=== PATIENT | female | born 1995 | race American Indian/Alaskan Native ===

== ENCOUNTER → 2018-03-08 12:41 | Outpatient (CLI) | payer MEDICAID, SELFPAY ==
--- NOTE | 2018-03-08 | DI.US.S_ITS ---
PROCEDURE: US OB <= 14 WEEKS FETUS INDICATIONS: initial sizing and dating OUTSIDE/PRIOR DATING DATA: First dating scan (date and location): 03/08/18. Estimated date of delivery (AROLDO) from first dating scan: 11/03/18. TECHNIQUE: Real-time scanning was performed of the fetus and maternal pelvic organs, with image documentation. Endovaginal scanning was also performed to better visualize the fetus and maternal ovaries. COMPARISON: None. FINDINGS: Embryo: [place]-rump length measures 2 mm corresponding to 5 weeks 5 days. AROLDO is 11/03/18. There is a complex region noted adjacent to the sac within the lower uterine segment which may be related to implantation bleed. Measurement variability in dating: +/- 4 weeks by LMP, +/- 7 days by mean sac diameter (use before 6 weeks gestation if crown-rump length not able to be measured), +/- 5 days by crown-rump length (up to 8 weeks 6 days gestation), +/- 7 days by crown-rump length (up to 13 weeks 6 days gestation). Maternal organs: Ovaries within normal limits with a right corpus luteal cyst measuring roughly 29 mm. Limited images through the kidneys demonstrate no hydronephrosis. IMPRESSION: 5 week 5 day mclean IUP. Dictated by: Jose DEUTSCH Interpreted: King Rahman MD on 03/08/2018 at 13:59 Approved by: Kevin Lopez M.D. on 03/11/2018 at 10:15
== END ==
PROVIDERS: Visit Provider Family Medicine
DX: Z34.91 Encounter for supervision of normal pregnancy, unspecified, first trimester (principal); Z3A.01 Less than 8 weeks gestation of pregnancy
CPT/HCPCS: 76801; 76830

== ENCOUNTER 2018-04-01 01:38 | Emergency (ER) | payer MEDICAID, SELFPAY ==
[2018-04-01 01:52] VITALS: BP 127/72; PULSE 76; RESP 16; TEMP 37.1; O2SAT 98; BMI 26.6
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
[2018-04-01] MEDS: ACETAMINOPHEN 325 MG TABLET 975 MG PO (02:07)
[2018-04-01 03:49] LABS: Appearance Urine UA CLEAR; Bilirubin Urine UA NEGATIVE (NEGATIVE); Color Urine UA YELLOW; Glucose Urine UA NEGATIVE (Normal); Ketones Urine UA TRACE (NEGATIVE); Leukocyte Esterase Urine UA 1+ (NEGATIVE); Nitrite Urine UA Negative (Negative); Occult Blood Urine UA NEGATIVE (Negative); Protein Urine UA NEGATIVE (Negative); RBC Urine None Seen (0-5/HPF); Urobilinogen Urine UA 0.2 E.U./dL (0.2)
[2018-04-01 04:01] LABS: Squamous Epithelial Cell Urine 1-5 /HPF; WBC Urine 1-5/HPF (0-5/HPF)
[2018-04-01 04:02] LABS: Bacteria Urine Few (2-10); Culture Indicated Urine Specimen Cultured
[2018-04-01 04:14] VITALS: BP 116/58; PULSE 67; RESP 18; O2SAT 99
== END 2018-04-01 04:28 | disposition home or self-care (01) ==
PROVIDERS: Emergency Provider Emergency Medicine
DX: O23.41 Unspecified infection of urinary tract in pregnancy, first trimester (principal); Y04.8XXA Assault by other bodily force, initial encounter; Z3A.09 9 weeks gestation of pregnancy
CPT/HCPCS: 76801; 76817; 81001; 81003; 87086; 99282; 99284

== ENCOUNTER → 2018-04-02 13:55 | Outpatient (CLI) | payer MEDICAID, SELFPAY ==
[2018-04-02 15:10] LABS: Add Manual Diff / Slide Review NO; Basophils Percent Auto 1.1 % (0-2); Eosinophils Percent Auto 5.1 % (2-4); Hematocrit 43.2 % (36-46); Hemoglobin 14.8 g/dL (12.0-16.0); Lymphocytes Percent Auto 20.8 % (25-40); Mean Corpuscular HGB Conc 34.3 % (30-36); Mean Corpuscular Hemoglobin 29.7 PG (26-34); Mean Corpuscular Volume 86.6 fL (80-100); Monocytes Percent Auto 6.6 % (3-14); Neutrophils Absolute Auto 6000 /uL (3000-5900); Neutrophils Percent Auto 66.4 % (50-75); Platelet Count 336 X10^3/uL (150-400); Red Blood Cell Count 4.99 X10^6/uL (4.0-5.2); Red Cell Distribution Width 12.8 % (11.6-14.8)
[2018-04-02 15:23] LABS: Appearance Urine UA SL CLOUDY; Bilirubin Urine UA NEGATIVE (NEGATIVE); Color Urine UA YELLOW; Glucose Urine UA NEGATIVE (Normal); Ketones Urine UA NEGATIVE (NEGATIVE); Leukocyte Esterase Urine UA 1+ (NEGATIVE); Nitrite Urine UA Negative (Negative); Occult Blood Urine UA NEGATIVE (Negative); Protein Urine UA NEGATIVE (Negative); Urobilinogen Urine UA 0.2 E.U./dL (0.2)
[2018-04-02 15:55] LABS: RBC Urine None Seen (0-5/HPF)
[2018-04-02 15:56] LABS: Amorphous Sediment Urine 1+; Renal Epithelial Cells Urine 1-5/HPF; Squamous Epithelial Cell Urine 10-30 /HPF; WBC Urine 5-10/HPF (0-5/HPF)
[2018-04-02 15:57] LABS: Bacteria Urine Few (2-10); Mucus Urine 1+ (Negative)
[2018-04-02 16:36] LABS: Hepatitis B Surface Antigen NEGATIVE s/c (NEGATIVE); Rubella Antibody IgG 4.5 IU/mL (>15)
[2018-04-02 16:58] LABS: HIV 1 and 2 Antibody NEGATIVE (NEGATIVE); Hep C Virus Ab w/Reflex Quant NEGATIVE s/c (NEGATIVE)
[2018-04-04 14:19] LABS: HSV 2 IGG AB < 0.90 index (< 0.90)
[2018-04-04 14:49] LABS: Varicella IgG Antibody < 135.00 Index (< 135.00)
[2018-04-08 14:16] LABS: Rapid Plasma Reagin NON-REACTIVE
== END ==
PROVIDERS: Visit Provider Specialist
DX: Z34.90 Encounter for supervision of normal pregnancy, unspecified, unspecified trimester (principal)
CPT/HCPCS: 36415; 80055; 81003; 81015; 86695; 86696; 86703; 86787; 86803; 86850; 86900; 86901; 87086

== ENCOUNTER → 2018-06-06 15:05 | Outpatient (CLI) | payer MEDICAID, SELFPAY ==
[2018-06-12 21:54] LABS: AFP, Serum 36.3 ng/mL; Calc Gestational Age 18.6; Cigarette Smoker NO; Donated Egg NOT GIVEN; Donor Egg Age NOT GIVEN; Estriol, Free 1.39 ng/mL; Inhibin A, Dimeric 114 pg/mL; Maternal Ethnicity NOT GIVEN; Maternal Weight 176 lbs; Number of Fetuses NOT GIVEN; Previous Pregnancy Down Syndro NOT GIVEN; hCG, MoM 0.84; hCG, Serum 17.2 IU/mL
== END ==
PROVIDERS: Visit Provider Specialist
DX: Z34.82 Encounter for supervision of other normal pregnancy, second trimester (principal)
CPT/HCPCS: 36415; 82105; 82677; 84702; 86336

== ENCOUNTER → 2018-07-12 11:06 | Outpatient (CLI) | payer MEDICAID, SELFPAY ==
--- NOTE | 2018-07-12 11:07 | DI.US.S_ITS ---
PROCEDURE: US OB >= 14 WEEKS FETUS INDICATIONS: 20 WEEK ANATOMY OUTSIDE/PRIOR DATING DATA: Last menstrual period (LMP): unknown LMP-based estimated date of delivery (AROLDO): unknown First dating scan (date and location): 03/08/18 Estimated date of delivery (AROLDO) from first dating scan: 11/03/18 . TECHNIQUE: Real-time scanning was performed of the fetus, with image documentation and biometric measurements. COMPARISON: [facility], OB >= 14 WEEKS FETUS, 04/11/2018, 8:23. formerly [facility], OB <= 14 WEEKS FETUS, 04/01/2018, 2:31. formerly [facility], OB <= 14 WEEKS FETUS, 03/08/2018, 13:20. [facility], OB >= 14 WEEKS FETUS, 06/06/2018, 14:49. FINDINGS: General: A single living intrauterine gestation is present. Presentation: Vertex Placenta: Placental position is posterior, without previa. Lower placental edge 2 cm or less from internal cervical os qualifies as low lying placenta. Amniotic fluid index: 24.2 cm, normal range is 5-24 cm. heart rate: 149 beats per minute. Maternal cervical canal: 3.2 cm long. Normal lower limit is 2.5 cm. Report any funneling of internal cervical os: % of canal length, shape (U or V), width or any U-shaped funneling. biometrics: Biparietal diameter: 6.0 cm 24 weeks 4 days Head circumference: 22.3 cm 24 weeks 2 days Abdominal circumference: 20.4 cm 25 weeks 0 days Femur length: 4.4 cm 24 weeks 2 days Estimated gestational age from initial scan: 23 weeks 5 days Composite gestational age from present scan: 24 weeks 4 days Estimated weight and percentile: 718g 83rd percentile Measurement variability for biometric dating: +/- 7 days from 14 weeks to 15 weeks 6 days gestation, +/- 10 days from 16 weeks to 21 weeks 6 days gestation, +/- 2 weeks from 22 weeks to 27 weeks 6 days gestation, +/- 3 weeks for 28 weeks gestation or later. weight reference: 4500 g or EFW >90/95% is considered macrosomia or large for gestational age. EFW <10% is small for gestational age. EFW 5% or less is considered intra-uterine growth restriction. Anatomic survey: Neuro: Ventricles are non-dilated at less than 10 mm. Cisterna magna is normal at 3-11 mm. Cerebellum is normal in size and morphology. Nuchal skin fold: Normal at less than 6 mm between 14-21 weeks gestational age. Face: Nose and lips, facial profile are normal. Spine: Not visualized. Heart: 4-chambered heart is present, with normal ventricular outflow tracts. Echogenic focus is noted in the left ventricle. Diaphragm: Diaphragm is intact. Stomach: Left-sided stomach is present. Kidneys: No hydronephrosis. Normal is less than 5 mm in 2nd trimester, less than 7 mm in 3rd trimester. Cord: 3-vessel cord has orthotopic insertion. Bladder: Normal in size. Extremities: All 4 extremities identified. IMPRESSION: 1. Single, live intrauterine is present with ultrasound gestational age of 24 weeks 4 days, compared to 23 weeks 5 days from initial ultrasound. 2. Spine is not well seen. Followup ultrasound is recommended for further evaluation. 3. Left ventricular echogenic focus is present. Finding is nonspecific. Recommend clinical correlation and followup imaging as indicated. Dictated by: Marylou Conklin M.D. on 07/12/2018 at 16:43 Approved by: Marylou Conklin M.D. on 07/12/2018 at 16:54
== END ==
PROVIDERS: PCP Specialist; Visit Provider Specialist
DX: Z34.92 Encounter for supervision of normal pregnancy, unspecified, second trimester (principal); Z36.89 Encounter for other specified antenatal screening; Z3A.24 24 weeks gestation of pregnancy
CPT/HCPCS: 76811

== ENCOUNTER → 2018-07-22 13:55 | Outpatient (CLI) | payer MEDICAID, SELFPAY ==
--- NOTE | 2018-07-22 13:56 | DI.US.S_ITS ---
PROCEDURE: US OB FOLLOW UP INDICATIONS: FOLLOW UP OF SPINE OUTSIDE/PRIOR DATING DATA: Last menstrual period (LMP): Not available. LMP-based estimated date of delivery (AROLDO): Not available. First dating scan (date and location): 03/08/18. Estimated date of delivery (AROLDO) from first dating scan: 11/03/18. TECHNIQUE: Real-time scanning was performed of the fetus, with image documentation. Endovaginal scanning: Not needed for this study. COMPARISON: All prior OB ultrasound studies for this .. FINDINGS: A single living intrauterine gestation is present. Presentation: Vertex. Placenta: Placental position is posterior, without previa. Amniotic fluid index: 12.9 cm, normal range is 5-24 cm. heart rate: 147 beats per minute. Estimated gestational age from initial scan: 25 weeks 1 day. Completion of anatomic survey is performed by visualization of normal spine in addition to the prior normal anatomy visualized previously. IMPRESSION: Completion of anatomic survey with normal spine visualized. Dictated by: Davion Otto M.D. on 07/22/2018 at 14:23 Approved by: Davion Otto M.D. on 07/22/2018 at 14:25
== END ==
PROVIDERS: PCP Specialist; Visit Provider Specialist
DX: Z36.89 Encounter for other specified antenatal screening (principal); Z3A.25 25 weeks gestation of pregnancy
CPT/HCPCS: 76816

== ENCOUNTER → 2018-08-02 16:34 | Outpatient (CLI) | payer MEDICAID, SELFPAY ==
[2018-08-02 18:13] LABS: Hematocrit 37.6 % (36-46); Hemoglobin 12.9 g/dL (12.0-16.0)
[2018-08-02 18:25] LABS: GTT (PREG) 1 Hour PP 50gm Dose 78 mg/dL (76-139)
== END ==
PROVIDERS: PCP Specialist; Visit Provider Specialist
DX: Z34.82 Encounter for supervision of other normal pregnancy, second trimester (principal)
CPT/HCPCS: 36415; 82950; 85014; 85018

== ENCOUNTER 2018-08-21 11:40 | Outpatient (CLI) | payer MEDICAID, SELFPAY ==
--- NOTE | 2018-08-21 12:12 | PM.OBTRLD ---
Visit Information Visit Information Date of evaluation: 08/21/18 Primary OB Provider: Alicia Calderon On-call OB Provider: Areli Hernandez Reason for Evaluation: Yes other Comments/Additional reasons for admission: Intermittent abdominal pain, primarily LUQ. Not severe. Her work requested that she come in for evaluation. [facility] Medical History Asthma (Acute) Social History Smoking Status: Never smoker Evaluation Evaluation Baseline heart rate: 140 Variability: Moderate (11-25) monitor accelerations: Present monitor decelerations: Absent Category of Tracing: I Comments: No contractions seen on monitoring Diagnosis, Plan/Disposition Final Diagnosis (1) Abdominal pain: Current Visit: No Status: Acute Plan/Disposition Plan: Most likely muscular. No contractions on monitoring. U/A normal. Pt stable for d/c home. Discussed heating pad, Tylenol if needed. OB Disposition: home
--- NOTE | 2018-08-21 12:15 | P.TNLD_ITS ---
Visit Information Visit Information Date of evaluation: 08/21/18 Primary OB Provider: Alicia Calderon On-call OB Provider: Areli Hernandez Reason for Evaluation: Yes other Comments/Additional reasons for admission: Intermittent abdominal pain, primarily LUQ. Not severe. Her work requested that she come in for evaluation. [facility] Medical History Asthma (Acute) Social History Smoking Status: Never smoker Evaluation Evaluation Baseline heart rate: 140 Variability: Moderate (11-25) monitor accelerations: Present monitor decelerations: Absent Category of Tracing: I Comments: No contractions seen on monitoring Diagnosis, Plan/Disposition Final Diagnosis (1) Abdominal pain: Current Visit: No Status: Acute Plan/Disposition Plan: Most likely muscular. No contractions on monitoring. U/A normal. Pt stable for d/c home. Discussed heating pad, Tylenol if needed. OB Disposition: home
[2018-08-21 12:19] LABS: RBC Urine None Seen (0-5/HPF)
[2018-08-21 12:21] LABS: Appearance Urine UA CLEAR; Bilirubin Urine UA NEGATIVE (NEGATIVE); Color Urine UA YELLOW; Glucose Urine UA NEGATIVE (Normal); Ketones Urine UA NEGATIVE (NEGATIVE); Leukocyte Esterase Urine UA NEGATIVE (NEGATIVE); Nitrite Urine UA NEGATIVE (Negative); Occult Blood Urine UA NEGATIVE (Negative); Protein Urine UA NEGATIVE (Negative); Urobilinogen Urine UA 0.2 E.U./dL (0.2)
[2018-08-21 12:37] LABS: Bacteria Urine Few (2-10); Culture Indicated Urine Cult Not Indicated; Squamous Epithelial Cell Urine 10-30 /HPF; WBC Urine 1-5/HPF (0-5/HPF)
== END 2018-08-21 12:45 | disposition home or self-care (01) ==
LOC: LABOR 12:27 → OB 08-22 11:02
PROVIDERS: Family Medicine; PCP Specialist; Visit Provider Specialist
DX: Z34.83 Encounter for supervision of other normal pregnancy, third trimester (principal); Z3A.29 29 weeks gestation of pregnancy; R10.12 Left upper quadrant pain
CPT/HCPCS: 59025; 81001; G0378; G0379

== ENCOUNTER 2018-09-17 14:14 | Outpatient (CLI) | payer MEDICAID, SELFPAY ==
[2018-09-17 14:45] LABS: RBC Urine None Seen (0-5/HPF)
[2018-09-17 14:47] LABS: Appearance Urine UA CLOUDY; Bilirubin Urine UA NEGATIVE (NEGATIVE); Color Urine UA YELLOW; Glucose Urine UA NEGATIVE (Normal); Ketones Urine UA NEGATIVE (NEGATIVE); Leukocyte Esterase Urine UA 2+ (NEGATIVE); Nitrite Urine UA NEGATIVE (Negative); Occult Blood Urine UA NEGATIVE (Negative); Protein Urine UA NEGATIVE (Negative); Specific Gravity Urine UA 1.015 (1.000-1.035); Urobilinogen Urine UA 0.2 E.U./dL (0.2)
[2018-09-17 14:57] LABS: WBC Urine 5-10/HPF (0-5/HPF)
[2018-09-17 14:58] LABS: Amorphous Sediment Urine 2+; Bacteria Urine Moderate (10-30); Culture Indicated Urine Specimen Cultured; Mucus Urine 2+ (Negative); Squamous Epithelial Cell Urine 10-30 /HPF
== END 2018-09-17 15:35 | disposition home or self-care (01) ==
LOC: LABOR 14:36 → OB 09-19 08:23
PROVIDERS: PCP Specialist; Visit Provider Specialist
DX: Z34.83 Encounter for supervision of other normal pregnancy, third trimester (principal); Z3A.33 33 weeks gestation of pregnancy
CPT/HCPCS: 59025; 81001; 87086; G0378; G0379

== ENCOUNTER → 2018-10-10 12:35 | Outpatient (CLI) | payer MEDICAID, SELFPAY ==
[2018-10-11 13:33] LABS: Strep Grp B PCR NEG for Grp B Strep
== END ==
PROVIDERS: PCP Specialist; Visit Provider Specialist
DX: Z34.93 Encounter for supervision of normal pregnancy, unspecified, third trimester (principal); Z3A.36 36 weeks gestation of pregnancy
CPT/HCPCS: 87653

== ENCOUNTER 2018-10-19 09:46 | Outpatient (CLI) | payer MEDICAID, SELFPAY | END 2018-10-19 11:49 | disposition home or self-care (01) | LOC: OB 09:49 → LABOR 09:51 | PROVIDERS: PCP Specialist; Visit Provider Family Medicine | DX: Z34.83 Encounter for supervision of other normal pregnancy, third trimester (principal); Z3A.37 37 weeks gestation of pregnancy | CPT/HCPCS: 59025; G0378 ==

== ENCOUNTER 2018-10-20 07:33 | Inpatient (IN) | payer MEDICAID, SELFPAY ==
[2018-10-20] MEDS: LACTATED RINGERS 1,000 ML 100 ML IV (08:30)
[2018-10-20 09:06] LABS: Add Manual Diff / Slide Review NO; Basophils Absolute Auto 100 /uL (0-100); Basophils Percent Auto 0.6 % (0-2); Eosinophils Absolute Auto 200 /uL (0-450); Eosinophils Percent Auto 1.8 % (2-4); Hematocrit 35.8 % (36-46); Hemoglobin 12.1 g/dL (12.0-16.0); Lymphocytes Absolute Auto 2100 /uL (1100-4500); Lymphocytes Percent Auto 19.6 % (25-40); Mean Corpuscular HGB Conc 33.8 % (30-36); Mean Corpuscular Hemoglobin 27.5 PG (26-34); Mean Corpuscular Volume 81.2 fL (80-100); Monocytes Absolute Auto 800 /uL (0-900); Monocytes Percent Auto 7.2 % (3-14); Neutrophils Absolute Auto 7600 /uL (1500-7000); Neutrophils Percent Auto 70.8 % (50-75); Platelet Count 244 X10^3/uL (150-400); Red Cell Distribution Width 12.6 % (11.6-14.8); White Blood Cell Count 10.7 X10^3/uL (4.5-11.0)
--- NOTE | 2018-10-20 10:10 | PM.OBHP.1 ---
OB HPI Date/Time Date of admission: 10/20/18 Date Patient Seen: 10/20/18 Time Patient Seen: 09:45 History of Present Condition Chief complaint: OBSERVATION : 2 Para: 1 Estimated Date of Delivery: 11/03/18 Estimated Gestational Age (weeks): 38w0d Narrative: Medina Byrd is a 23 year old at 38w0d who presented with regular painful contractions. The pt reports having contractions starting last night, that then waned. When she woke this morning, they were significantly more painful again, and increasing in strength. Prior to presentation, they were approximately every 6 minutes. The pt had some light spotting this morning, and did lose her mucus plug. She denies any LOF. She has been feeling her baby move regularly. Indications Other reason(s) for admission: active labor History of Present care: good care and initiated at week # (10) Dating criteria: LMP confirmed by 1st trimester US Ultrasounds: normal 1st trimester US and abnormal US findings Abnormal ultrasound findings: EIF seen on second trimester ultrasound Obstetrical complications: none Medical complications: respiratory (hx of asthma) Preadmission Labs Blood type: O (+) positive -: Antibody screen: negative, GBS status: negative, HBsAG: negative, HIV: negative, HSV 1: positive, HSV 2: negative and RPR/VDLR: negative -: Chlamydia screen: not detected and Gonorrhea screen: not detected -: Rubella: not immune and Varicella: immune HCT: 37.6 HCAB: negative PAP: Normal Quad screen: Normal Urine: Negative 1 hr GTT: 78 Prior (ies) History: 06/2011 - at 38wks, 7lb2oz female Evaluation Evaluation Baseline heart rate: 130 Variability: Moderate (11-25) monitor accelerations: Present monitor decelerations: Absent Contraction Frequency (minutes): 6 Uterine Contraction Intensity: Strong/Firm Category of Tracing: I Cervical dilation (cm): 7 Cervical effacement (%): 100 station: 0 Laboratory results: Laboratory Tests 10/20/18 10/20/18 08:55 08:55 WBC 10.7 RBC 4.40 Hgb 12.1 Hct 35.8 L MCV 81.2 MCH 27.5 MCHC 33.8 RDW 12.6 Plt Count 244 Neut % (Auto) 70.8 Lymph % (Auto) 19.6 L [place] % (Auto) 7.2 Eos % (Auto) 1.8 L Baso % (Auto) 0.6 Neut # (Auto) 7600 H Lymph # (Auto) 2100 [place] # (Auto) 800 Eos # (Auto) 200 Baso # (Auto) 100 Blood Type O Positive Antibody Screen Negative PFSH Medical History Asthma (Acute) Social History Smoking Status: Never smoker Meds Home Medications Medication Instructions Recorded Confirmed Type amoxicillin 500 mg PO TID #15 cap 04/01/18 04/02/18 Rx 1 tab PO DAILY 04/02/18 04/02/18 History vitamin,calcium,[id number] acid tablet Double Electric Breast Pump #1 ea 10/10/18 Rx Allergies Allergy/AdvReac Type Severity Reaction Status Date / Time No Known Drug Allergies Allergy Verified 04/01/18 01:57 Exam Narrative Exam Narrative: Gen: NAD, laying comfortably in bed, appears well CV: RRR, no murmurs Resp: clear to auscultation bilaterally Abd: soft, nondistended, gravid Ext: trace edema Objective Labs Result Diagrams: 10/20/18 08:55 Labs: Laboratory Results - last 24 hr 10/20/18 10/20/18 08:55 08:55 WBC 10.7 RBC 4.40 Hgb 12.1 Hct 35.8 L MCV 81.2 MCH 27.5 MCHC 33.8 RDW 12.6 Plt Count 244 Neut % (Auto) 70.8 Lymph % (Auto) 19.6 L [place] % (Auto) 7.2 Eos % (Auto) 1.8 L Baso % (Auto) 0.6 Neut # (Auto) 7600 H Lymph # (Auto) 2100 [place] # (Auto) 800 Eos # (Auto) 200 Baso # (Auto) 100 Blood Type O Positive Antibody Screen Negative Assessment and Plan (1) 38 weeks gestation of : Current visit: Yes Status: Acute (2) Active labor: Current visit: Yes Status: Acute Plan: Plan: 23yo at 38w0d who presented in active labor with significant cervical change despite relatively infrequent contractions. No significant complications with . GBS negative, Rh positive. - Expectant management, anticipate - Epidural for pain control now - GBS negative, no prophylaxis indicated - FHT reassuring
--- NOTE | 2018-10-20 11:41 | PM.OBPNLAB ---
Date/Time Date Patient Seen: 10/20/18 Time Patient Seen: 11:40 Pain Control Pain control: epidural Pelvic Exam Dilation (cm): 7 Effacement (%): 100 station: 0 Amniotic membrane status: Ruptured Contractions Contractions on admission: regular Monitor mode: External Contraction frequency (min): 8 Contraction duration (min): 1 Contraction pattern: Irregular Contraction intensity: Strong/Firm Status status: Category l Heart Rate Baseline: 145 Monitor Accelerations: Absent Monitor Decelerations: Absent Monitor Variability: Moderate Assessment and Plan Plan: begin patient augmentation Comments: 23yo at 38w0d here in active labor. After informed consent obtained, AROM performed with production of scant amount of clear fluid. Now with no significant cervical belt changer an hour after, and contractions spacing further apart. - Expectant management, anticipate - FHT reassuring - Start pitocin due to stalled labor, titrate as needed and tolerated - Epidural in place for pain control and working well - GBS negative, no prophylaxis indicated
--- NOTE | 2018-10-20 11:44 | P.PNOB_ITS ---
Date/Time Date Patient Seen: 10/20/18 Time Patient Seen: 11:40 Pain Control Pain control: epidural Pelvic Exam Dilation (cm): 7 Effacement (%): 100 station: 0 Amniotic membrane status: Ruptured Contractions Contractions on admission: regular Monitor mode: External Contraction frequency (min): 8 Contraction duration (min): 1 Contraction pattern: Irregular Contraction intensity: Strong/Firm Status status: Category l Heart Rate Baseline: 145 Monitor Accelerations: Absent Monitor Decelerations: Absent Monitor Variability: Moderate Assessment and Plan Plan: begin patient augmentation Comments: 23yo at 38w0d here in active labor. After informed consent obtained, AROM performed with production of scant amount of clear fluid. Now with no significant cervical exchange mechanic an hour after, and contractions spacing further apart. - Expectant management, anticipate - FHT reassuring - Start pitocin due to stalled labor, titrate as needed and tolerated - Epidural in place for pain control and working well - GBS negative, no prophylaxis indicated
[2018-10-20] MEDS: OXYTOCIN PREMIX 30 UNIT/500 ML PLAST..BAG IV (11:49)
[2018-10-20 12:01] VITALS: BP 138/80
--- NOTE | 2018-10-20 14:48 | P.PCNOB_ITS ---
Delivery date: 10/20/18 Intrapartal events: None Cervical ripening method: none Induction method: none Delivery augmentation: rupture of membranes and pitocin Delivery monitor: external FHT Route of delivery: Episiotomy description: None L&D Laceration Description: None Estimated blood loss (mL): 150 Anesthesia type: Epidural Complications: None Narrative: PROCEDURE: at 38w presented in active labor and was admitted to Labor and Delivery. The patient progressed through the 1st stage over 5 hours. Pain was controlled with an epidural. Her labor did not initially progress past 7cm. AROM was performed with production of clear fluid. There was still no cervical change, and pitocin was started. This had to be stopped due to a high risk delivery in the center requiring additional support. The pt then progressed on her own to having more regular contractions on her own. The patient progressed through the 2nd stage over 45 minutes and delivered a viable female with APGARs 8/9 at 14:30 via . The perineum and vagina were inspected with no lacerations. PREPROCEDURE DIAGNOSIS: Intrauterine at 38wks GBS negative RH positive POSTPROCEDURE DIAGNOSIS: Intrauterine at 38wks, delivered Same as preprocedure Spontaneous vaginal delivery ROM APPEARANCE: Clear BABY A DELIVERY TIME: 14:30 BABY A WEIGHT: [id number] BABY A NUCHAL CORD: No BABY A CORD GASES OBTAINED: No PLACENTA DELIVERY TIME: 14:34 PLACENTA APPEARANCE: Intact Terrell Baby 1: Infant gender: Female Presentation: vertex position: Right Occiput Anterior Placenta delivery description: Spontaneous cord vessel description: 3 Vessels score (1 min): 8 score (5 min): 9 Plan for aftercare: Normal care support
[2018-10-20] MEDS: IBUPROFEN 600 MG TABLET PO (23:23)
--- NOTE | 2018-10-21 09:07 | PM.OBDS.1 ---
Discharge Providers Date of admission: 10/20/18 07:33 Primary care physician: Alicia Calderon MD Consults: 10/20/18 15:10 Consult to Electrical Installer Routine Comment: Discharge provider: Areli Hernandez MD Discharge Date: 10/21/18 Summary Date Patient Seen: 10/21/18 Hospital Course: The patient presented to Labor and delivery in active labor. She received an epidural for pain control. AROM was performed with production of clear fluid. The patient's labor stalled at 7cm, and Pitocin was started for a brief period of time but then need to be stopped due to a other high-risk delivery occurring in the Center. The patient then progressed to complete without augmentation. She had a spontaneous vaginal delivery of a viable baby girl at 2:30 p.m. on 10/20/2018. There were no lacerations. The patient tolerated delivery well. , there were no complications. At the time of discharge he is voiding, passing flatus, ambulating without difficulty. Her lochia was decreasing appropriately. She is breast-feeding with good latch. She will be discharged home to follow up in [address] Calderon. She plans on Mirena IUD for control. Peripartum Data Infant Delivery Method: Natural Vaginal Laceration description: None Episiotomy description: None Procedures: Spontaneous vaginal delivery complications: none [place] 1: Gender: Female Disposition of : home Discharge Diagnosis (1) 38 weeks gestation of : Status: Acute (2) Active labor: Status: Acute (3) Spontaneous vaginal delivery: Status: Acute Status at Discharge Functional status at discharge: independent ambulation Overall status at discharge: patient is progressing back to baseline Time Spent with Patient Total time spent providing and/or coordinating discharge services: Greater than 30 minutes Specific discharge activities: No intercourse for 6 weeks Gradual return to normal activities Objective Labs Result Diagrams: 10/20/18 08:55 Labs: Laboratory Results - last 24 hr 10/20/18 08:55 Blood Type O Positive Antibody Screen Negative Discharge Plan Discharge Plan Patient Disposition: Home Discharge Med Rec/Prescriptions Prescriptions: New acetaminophen 325 mg Tablet 650 mg PO Q6HR PRN (Reason: Pain, Mild (1-3)) Qty: 30 RF: 0 benzocaine-menthol [Dermoplast (with menthol)] 20-0.5 % Aerosol 1 spray Topical Q1HR PRN (Reason: perineal pain) Qty: 15 RF: 0 ibuprofen 600 mg Tablet 600 mg PO Q6HR PRN (Reason: Pain, Mild (1-3)) Qty: 30 RF: 0 docusate sodium 250 mg Capsule 250 mg PO DAILY Qty: 30 RF: 0 lanolin [[id number]] Cream 1 applic Topical PRN PRN (Reason: Tenderness) Qty: 15 RF: 0 Continue Double Electric Breast Pump Qty: 1 RF: 0 prenat.vits,reyes,seb-ygfc-ppfxm [ Vitamin] tablet 1 tab PO DAILY RF: 0 Discontinued amoxicillin 500 mg capsule 500 mg PO TID Qty: 15 RF: 0 Follow up/Referrals: Alicia Calderon MD [Primary Care Provider] - 6 Weeks Provider Discharge Instructions Diet: Diet as Tolerated and Regular Activity: No intercourse for 6 weeks Gradual return to normal activity Skin/Wound/Dressing Care Report to your healthcare provider any signs of infection, such as:: chills, fever, increased pain and unusual drainage Visit Report/Discharge Packet Instructions: DI for Labor and Delivery, Vaginal Discharge Data Primary Care Provider: Alicia Calderon Attending Provider: Areli Hernandez Admit Date/Time: 10/20/18 07:33
[2018-10-21] MEDS: PRENATAL VIT,CALC/IRON/FOLIC 1 TABLET 1 TAB PO (09:11)
[2018-10-21] MEDS: DOCUSATE 250 MG CAPSULE PO (09:11)
[2018-10-21] MEDS: IBUPROFEN 600 MG TABLET PO (09:11)
[2018-10-21] MEDS: MEASLES,MUMPS,RUBELLA VACC/PF 0.5 ML VIAL SUBCUT (14:21)
== END 2018-10-21 14:50 | disposition home or self-care (01) | DRG 807 ==
PROVIDERS: Admitting Provider Family Medicine; PCP Specialist; Visit Provider Family Medicine
DX: O80 Encounter for full-term uncomplicated delivery (principal); Z37.0 Single live birth; Z3A.38 38 weeks gestation of pregnancy
CPT/HCPCS: 01967; 36415; 59025; 59050; 59409; 85025; 86850; 86900; 86901; G0379; J2590

== ENCOUNTER → 2022-03-01 13:04 | Outpatient (CLI) | payer MEDICAID, SELFPAY ==
[2022-03-01 14:17] LABS: Add Manual Diff / Slide Review NO; Basophils Absolute Auto 100 /uL (0-100); Basophils Percent Auto 0.8 % (0-2); Eosinophils Absolute Auto 300 /uL (0-450); Eosinophils Percent Auto 3.4 % (2-4); Hematocrit 39.5 % (36-46); Hemoglobin 13.7 g/dL (12.0-16.0); Lymphocytes Absolute Auto 2300 /uL (1100-4500); Lymphocytes Percent Auto 24.8 % (25-40); Mean Corpuscular HGB Conc 34.8 % (30-36); Mean Corpuscular Hemoglobin 30.5 PG (26-34); Mean Corpuscular Volume 87.7 fL (80-100); Monocytes Absolute Auto 400 /uL (0-900); Monocytes Percent Auto 4.8 % (3-14); Neutrophils Absolute Auto 6000 /uL (1500-7000); Neutrophils Percent Auto 66.2 % (50-75); Platelet Count 346 X10^3/uL (150-400); Red Cell Distribution Width 13.2 % (11.6-14.8); White Blood Cell Count 9.1 X10^3/uL (4.5-11.0)
[2022-03-02 02:51] LABS: RPR Screen Non Reactive (Non Reactive)
[2022-03-02 07:58] LABS: Varicella IgG Antibody <135 index (Immune >165)
[2022-03-02 16:51] LABS: Hepatitis B Surface Antigen NEGATIVE s/c (NEGATIVE); Rubella Antibody IgG 3.3 IU/mL (>15)
[2022-03-02 17:07] LABS: HIV 1 & 2 Ab/Ag 4th Gen Combo NEGATIVE (NEGATIVE); Hep C Virus Ab w/Reflex Quant NEGATIVE s/c (NEGATIVE)
== END ==
PROVIDERS: PCP Family Medicine; Referring Provider Family Medicine; Visit Provider Family Medicine
DX: Z34.91 Encounter for supervision of normal pregnancy, unspecified, first trimester (principal); Z3A.09 9 weeks gestation of pregnancy
CPT/HCPCS: 36415; 80055; 86787; 86803; 86850; 86900; 86901; 87389

== ENCOUNTER → 2022-04-14 09:35 | Outpatient (CLI) | payer MEDICAID, SELFPAY ==
[2022-04-17 12:55] LABS: AFP, Serum 31.1 ng/mL (.); Estriol, Free 0.89 ng/mL (.); Inhibin A, Dimeric 180.02 pg/mL (.); Inhibin A, MoM 1.32 (.); Maternal Ethnicity Other (.); Maternal Weight 190 lbs (.); Number of Fetuses No (.); OSBR Risk 1 IN 10000 (.); Results Report (.); Test Results *Screen Negative* (.); hCG, MoM 1.48 (.); hCG, Serum 54535 mIU/mL (.)
== END ==
PROVIDERS: PCP Family Medicine; Referring Provider Family Medicine; Visit Provider Family Medicine
DX: Z34.92 Encounter for supervision of normal pregnancy, unspecified, second trimester (principal); Z3A.16 16 weeks gestation of pregnancy
CPT/HCPCS: 36415; 82105; 82677; 84702; 86336

== ENCOUNTER → 2022-05-17 07:59 | Outpatient (CLI) | payer MEDICAID, SELFPAY ==
--- NOTE | 2022-05-17 08:01 | DI.US.S_ITS ---
PROCEDURE: US OB >= 14 WEEKS FETUS INDICATIONS: Anatomy Screen OUTSIDE/PRIOR DATING DATA: Last menstrual period (LMP): 12/24/2021. LMP-based estimated date of delivery (AROLDO): 09/30/2022 First dating scan (date and location): 05/17/2022 Estimated date of delivery (AROLDO) from first dating scan: 09/28/2022. TECHNIQUE: Real-time scanning was performed of the fetus, with image documentation and biometric measurements. Endovaginal scanning: Not performed. COMPARISON: None. FINDINGS: General: A single living intrauterine gestation is present. Presentation: Transverse. Placenta: Placental position is anterior , without previa. Amniotic fluid index: 10.6 cm, normal range is 5-24 cm. Single deepest vertical pocket is 3.0 cm. heart rate: 153 beats per minute. Maternal cervical canal: 5.7 cm long. Normal lower limit is 2.5 cm. biometrics: Biparietal diameter: 4.8 cm, 20 weeks 3 days Head circumference: 18.6 cm, 21 weeks 0 days Abdominal circumference: 16.5 cm, 21 weeks 4 days Femur length: 3.4 cm, 20 weeks 4 days Clinically estimated gestational age: 20 weeks 4 days Composite gestational age from present scan: 20 weeks 6 days Estimated weight and percentile: 397 g, 73rd percentile Anatomic survey: Neuro: Ventricles are non-dilated at less than 10 mm. Cisterna magna is normal at 3-11 mm. Cerebellum is normal in size and morphology. Nuchal skin fold: Normal at less than 6 mm between 14-21 weeks gestational age. Face: Nose and lips, facial profile are normal. Spine: No evidence for spina bifida. Heart: 4-chambered heart is present, with normal ventricular outflow tracts. Diaphragm: Diaphragm is intact. Stomach: Left-sided stomach is present. Kidneys: No hydronephrosis. Normal is less than 5 mm in 2nd trimester, less than 7 mm in 3rd trimester. Cord: 3-vessel cord has orthotopic insertion. Bladder: Normal in size. Extremities: All 4 extremities identified. IMPRESSION: 1. Single living intrauterine . 2. Normal 2nd trimester anatomy survey. No anomalies detected at this time. We strive to produce accurate, complete, and clear reports of imaging services. To assist us in improving patient care, this report was composed using standard report templates and voice recognition software. Therefore, it may contain abnormal punctuation, insertions and/or omissions. Occasional wrong-word or sound-alike substitutions may occur. Though we review the report and make efforts to correct it, we do recommend that the report be read carefully in proper context to recognize any text inaccuracies. Dictated by: Jon Gregory M.D. on 05/17/2022 at 14:13 Approved by: Jon Gregory M.D. on 05/17/2022 at 14:22
== END ==
PROVIDERS: PCP Family Medicine; Referring Provider Family Medicine; Visit Provider Family Medicine
DX: Z34.92 Encounter for supervision of normal pregnancy, unspecified, second trimester (principal); Z3A.20 20 weeks gestation of pregnancy
CPT/HCPCS: 76811

== ENCOUNTER → 2022-07-19 13:57 | Outpatient (CLI) | payer MEDICAID, SELFPAY ==
[2022-07-19 16:50] LABS: Add Manual Diff / Slide Review NO; Basophils Absolute Auto 0 /uL (0-100); Basophils Percent Auto 0.4 % (0-2); Eosinophils Absolute Auto 300 /uL (0-450); Eosinophils Percent Auto 3.5 % (2-4); Hematocrit 37.2 % (36-46); Hemoglobin 12.6 g/dL (12.0-16.0); Lymphocytes Absolute Auto 1900 /uL (1100-4500); Lymphocytes Percent Auto 21.2 % (25-40); Mean Corpuscular HGB Conc 33.9 % (30-36); Mean Corpuscular Volume 85.5 fL (80-100); Monocytes Absolute Auto 600 /uL (0-900); Monocytes Percent Auto 6.3 % (3-14); Neutrophils Absolute Auto 6200 /uL (1500-7000); Neutrophils Percent Auto 68.6 % (50-75); Platelet Count 286 X10^3/uL (150-400); Red Blood Cell Count 4.35 X10^6/uL (4.0-5.2); Red Cell Distribution Width 12.6 % (11.6-14.8)
[2022-07-19 17:17] LABS: GTT (PREG) 1 Hour PP 50gm Dose 113 mg/dL (76-139)
== END ==
PROVIDERS: PCP Family Medicine; Referring Provider Family Medicine; Visit Provider Family Medicine
DX: Z34.90 Encounter for supervision of normal pregnancy, unspecified, unspecified trimester (principal); Z3A.26 26 weeks gestation of pregnancy
CPT/HCPCS: 36415; 82950; 85025

== ENCOUNTER 2022-08-27 16:07 | Outpatient (CLI) | payer MEDICAID, SELFPAY ==
[2022-08-27 17:00] LABS: Appearance Urine UA CLEAR; Bilirubin Urine UA NEGATIVE (NEGATIVE); Color Urine UA YELLOW; Glucose Urine UA NEGATIVE (Negative); Ketones Urine UA NEGATIVE (NEGATIVE); Leukocyte Esterase Urine UA 1+ (NEGATIVE); Nitrite Urine UA NEGATIVE (Negative); Occult Blood Urine UA NEGATIVE (Negative); Protein Urine UA 1+ (Negative); Urobilinogen Urine UA 0.2 E.U./dL (0.2)
[2022-08-27 17:11] LABS: RBC Urine None Seen (0-5/HPF); WBC Urine 10-30/HPF (0-5/HPF); pH Urine UA 7.5 (4.5-8.0)
[2022-08-27 17:12] LABS: Amorphous Sediment Urine 1+; Bacteria Urine Few (2-10); Culture Indicated Urine Specimen Cultured; Squamous Epithelial Cell Urine 5-10 /HPF (0-5/HPF); Transitional Epi Cells Urine 1-5/HPF (0-5/HPF)
== END 2022-08-27 17:35 | disposition home or self-care (01) ==
LOC: OB 08-30 08:15
PROVIDERS: Family Medicine; PCP Family Medicine; Referring Provider Family Medicine; Visit Provider Family Medicine
DX: O26.893 Other specified pregnancy related conditions, third trimester (principal); R10.2 Pelvic and perineal pain; Z3A.35 35 weeks gestation of pregnancy
CPT/HCPCS: 59025; 81001; 87086; G0378; G0379

== ENCOUNTER → 2022-08-30 16:24 | Outpatient (ROUT) | payer OTHER, MEDICAID, SELFPAY ==
[2022-08-30 17:31] LABS: Appearance Urine UA SL CLOUDY; Bilirubin Urine UA NEGATIVE (NEGATIVE); Color Urine UA YELLOW; Glucose Urine UA NEGATIVE (Negative); Ketones Urine UA NEGATIVE (NEGATIVE); Leukocyte Esterase Urine UA 1+ (NEGATIVE); Nitrite Urine UA NEGATIVE (Negative); Occult Blood Urine UA NEGATIVE (Negative); Protein Urine UA TRACE (Negative); Urobilinogen Urine UA 0.2 E.U./dL (0.2)
[2022-08-30 20:07] LABS: Amorphous Sediment Urine 1+; Bacteria Urine Few (2-10); Culture Indicated Urine Specimen Cultured; RBC Urine 1-5/HPF (0-5/HPF); Squamous Epithelial Cell Urine 1-5 /HPF (0-5/HPF); WBC Urine 1-5/HPF (0-5/HPF)
== END ==
PROVIDERS: PCP Family Medicine; Visit Provider Family Medicine
DX: O99.891 Other specified diseases and conditions complicating pregnancy (principal); R30.9 Painful micturition, unspecified
CPT/HCPCS: 81001; 87086

== ENCOUNTER → 2022-08-30 16:58 | Outpatient (CLI) | payer MEDICAID, SELFPAY ==
[2022-08-31 15:07] LABS: Strep Grp B PCR NEG for Grp B Strep
== END ==
PROVIDERS: PCP Family Medicine; Visit Provider Family Medicine
DX: O99.891 Other specified diseases and conditions complicating pregnancy; R30.9 Painful micturition, unspecified; Z36.85 Encounter for antenatal screening for Streptococcus B; Z3A.00 Weeks of gestation of pregnancy not specified
CPT/HCPCS: 81001; 87086; 87653

== ENCOUNTER 2022-09-13 03:26 | Observation (INO) | payer OTHER, MEDICAID, SELFPAY ==
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
== END 2022-09-13 08:30 | disposition home or self-care (01) ==
PROVIDERS: Admitting Provider Obstetrics & Gynecology; PCP Family Medicine; Referring Provider Obstetrics & Gynecology; Visit Provider Obstetrics & Gynecology
DX: O26.893 Other specified pregnancy related conditions, third trimester (principal); O41.03X0 Oligohydramnios, third trimester, not applicable or unspecified; V43.53XA Car driver injured in collision with pick-up truck in traffic accident, initial encounter; Z3A.37 37 weeks gestation of pregnancy
CPT/HCPCS: 59025; 59050; 76815; 76819; 84112; G0378; G0379

== ENCOUNTER 2022-09-15 07:07 | Inpatient (IN) | payer MEDICAID, SELFPAY ==
--- NOTE | 2022-09-15 07:38 | DI.US.S_ITS ---
PROCEDURE: US OB BIOPHYSICAL PROFILE INDICATIONS: OLIGOHYDRAMINOS OUTSIDE/PRIOR DATING DATA: Last menstrual period (LMP): 12/24/2021 LMP-based estimated date of delivery (AROLDO): 09/30/2022 First dating scan (date and location): 05/17/2020 Estimated date of delivery (AROLDO) from first dating scan: 09/28/2022. TECHNIQUE: Real-time scanning was performed of the fetus for biophysical profile, with image documentation. Endovaginal scanning: Not indicated COMPARISON: [facility], , US OB >= 14 WEEKS FETUS, 08/02/2018, 16:21. [facility], , US OB >= 14 WEEKS FETUS, 05/17/2022, 9:12. FINDINGS: General: A single living intrauterine gestation is present. Presentation: Vertex Placenta: Placental position is anterior, without gross previa. Amniotic fluid index: 4.3 cm, normal range is 5-24 cm. Single deepest vertical pocket is 2.7 cm. heart rate: 160 beats per minute. Maternal cervical canal: Not evaluated Clinically estimated gestational age: 38 weeks, 1 day. Estimated gestational age from initial scan: Not evaluated. Biophysical profile: Tone: 2 points. Movement: 2 points. Respiration: 2 points. Largest pocket of fluid: 2 points. Umbilical artery Doppler: Not measured. IMPRESSION: 1. Single live intrauterine gestation with fetus in vertex presentation. heart rate is 160 beats per minute. ROGELIO equals 4.3 cm . 2. biophysical profile score is 8/8. We strive to produce accurate, complete, and clear reports of imaging services. To assist us in improving patient care, this report was composed using standard report templates and voice recognition software. Therefore, it may contain abnormal punctuation, insertions and/or omissions. Occasional wrong-word or sound-alike substitutions may occur. Though we review the report and make efforts to correct it, we do recommend that the report be read carefully in proper context to recognize any text inaccuracies. Dictated by: Mason Looney M.D. on 09/15/2022 at 8:45 Approved by: Mason Looney M.D. on 09/15/2022 at 8:47
--- NOTE | 2022-09-15 08:53 | P.HPOB_ITS ---
OB HPI Date/Time Date of admission: 09/15/22 Date Patient Seen: 09/15/22 History of Present Condition Chief complaint: INDUCTION AROLDO Calculator Estimated Delivery Date Method Current WG Current Estimate 09/30/22 Manual 37w 6d Final AROLDO - DESI Other Estimates 09/30/22 LMP (Certain) 37w 6d 10/06/22 Ultrasound #1 37w 0d Estimated Gestational Age (weeks): 27w6d : 4 Para: 2 Narrative: Pt is a 27yo at 37w6d here for IOL for oligohydramnios. Oligohydramnios incidentally found on ultrasound completed 09/13 at outside facility, with ROGELIO of 3.0. Fundal heights has been tracking appropriately in clinic. Repeat ROGELIO the same day at this facility as 5.9. Repeat today shows an ROGELIO of 4.3, and the decision was made to induce. The pts has otherwise been without complications. Prior to presentation no vaginal bleeding or LOF. She has mild intermittent contractions. She is feeling her baby move regularly. care: good care, initiated at week # (9), number of visits (9) and pounds weight gain (28) Dating criteria OB: LMP confirmed by 1st trimester US Ultrasounds: normal 1st trimester US and normal mid trimester US Obstetrical complications: none Medical complications OB: none Indications Indication for induction OB: oligohydramnios Preadmission Labs Last OB Lab Results: Blood Type O Positive 03/01/22 13:19 Antibody Screen Negative 03/01/22 13:19 Hematocrit 37.2 % (36-46) 07/19/22 14:04 Hemoglobin 12.6 g/dL (12.0-16.0) 07/19/22 14:04 Hepatitis B Surface Antigen Negative s/c (NEGATIVE) 03/01/22 13 :19 Hepatitis C Antibody Negative s/c (NEGATIVE) 03/01/22 13:19 Rubella Antibody 3.3 IU/mL (>15) L 03/01/22 13:19 Varicella-Zoster IgG Antibody <135 index (Immune >165) L 13:19 Glucose 1 Hour 113 mg/dL (76-139) 07/19/22 14:04 Group B Streptococcus (PCR) Neg for grp b strep 08/30/22 16:58 -: Urine: negative Genetic Screens: Quad screen: Normal External Labs -: Urine: negative Prior (ies) Past Pregnancies Del. Date GA/Weeks Labor Lgth Wt Sex Route Outcome Anesthesia Place Delv Breastfeed Preg Comp Name 06/13/11 38 6 7 lb 2 oz Female vaginal live - full ter m epidural [place] Roman Pumped X 1 month none Jyoti Cancholaay-Contr ero 10/20/18 38 6 8 lb 11 oz Female vaginal live - full te rm epidural IH Dr Hernandez 27 months none Ritika Sargentough 02/10/21 14 elective Delivery Date: 06/13/11 Last Updated by: Roxanne Burton R.N. *No issues PP. Delivery Date: 10/20/18 Last Updated by: Roxanne Burton R.N. *PPD really bad per patient X 5 months. No help - coped. Delivery Date: 02/10/21 Last Updated by: Korina Urena R.N. D & C at [facility] in [place] Evaluation Evaluation Baseline heart rate: 150 Variability: Moderate (11-25) monitor accelerations: Present Monitor Decelerations: Absent Status: Category l Dilation (cm): 3 Effacement (%): 60 Dilation: 3-4 cm Effacement: 60-70% station: -4 Position of cervix: mid Consistency: soft Davis score: 7 PFSH Medical History (Updated 09/13/22 @ 17:24 by Areli Hernandez MD) Anxiety and depression Asthma Chlamydia Eczema Post depression (~2018) Right arm fracture Spontaneous vaginal delivery (~06/13/11) (spontaneous vaginal delivery) (~10/20/18) Surgical History (Updated 02/20/22 @ 13:05 by Korina Urena RN) H/O dilation and curettage No history of previous surgery Family History (Updated 12/15/20 @ 12:48 by Roxanne Burton RN) Mother Asthma Father No problems noted. Grandmother Cancer Grandfather No problems noted. Grandmother Circulatory disorder Grandfather No problems noted. Brother Cleft palate Sister Asthma Social History marital status: details: Living with the father of the baby number of children: 2 household members: significant other and children lives independently: Yes housing: apartment pets and animals: Yes (Dogs, aware of Toxoplasmosis) education level: high school occupational status: employed current occupational exposures/hazards: No Previous occupational history: [employer] special umair needs: No seatbelt use: always water heater temp set < 120 deg: Yes (will check) working smoke detector in home: Yes fire extinguisher in home: Yes carbon monox detector in home: Yes firearms in home: No do you feel safe at home: Yes Smoking Status: Former smoker Tobacco: How many years used: 12 quit 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) alcohol intake: former substance use type: does not use and marijuana during the past year weight has: remained stable well-balanced diet: daily or most days daily servings fruits/ve-4 caffeine: Yes (200mg a day) Type(s) of exercise: irregular exercise Meds Home Medications and Allergies Home Medications Medication Instructions Recorded Confirmed Type albuterol sulfate 90 mcg/actuation 2 puff inhalation Q6H PRN 12/15/20 09/08/22 History aerosol inhaler (ProAir HFA) prenat.vits,reyes,nac-oign-cfole 1 tab PO DAILY 12/15/20 09/08/22 History ondansetron 4 mg disintegrating 4 mg PO Q8H PRN nausea and 03/23/22 09/08/22 Rx tablet vomiting #30 tabs metoclopramide HCl 5 mg tablet 5 mg PO QACHS PRN nausea and 05/19/22 09/08/22 Rx vomiting #30 tabs Allergies Allergy/AdvReac Type Severity Reaction Status Date / Time cat dander Allergy Intermediate Sneezing, Verified 09/08/22 10:57 runny nose and watery eyes OB Exam Narrative Exam Narrative: Gen: NAD, sitting comfortably in bed, appears well CV: RRR, no murmurs Resp: clear to auscultation bilaterally Abd: soft, nontender, gravid Ext: no edema Assessment and Plan Assessment and Plan Assessment and Plan narrative: 27yo at 37w6d here for IOL for oligohydramnios. ROGELIO 4.3 today. No other complications with . GBS negative, Rh positive. - Expectant management, anticipate - FHT reassuring - GBS negative, no prophylaxis needed - Epidural for pain control when desired - Start pitocin, titrate as tolerated
[2022-09-15 10:40] LABS: Add Manual Diff / Slide Review NO; Basophils Absolute Auto 100 /uL (0-100); Basophils Percent Auto 0.6 % (0-2); Eosinophils Absolute Auto 300 /uL (0-450); Eosinophils Percent Auto 3.3 % (2-4); Hematocrit 36.7 % (36-46); Hemoglobin 12.3 g/dL (12.0-16.0); Lymphocytes Absolute Auto 1700 /uL (1100-4500); Lymphocytes Percent Auto 21.8 % (25-40); Mean Corpuscular HGB Conc 33.5 % (30-36); Mean Corpuscular Hemoglobin 28.2 PG (26-34); Monocytes Absolute Auto 500 /uL (0-900); Monocytes Percent Auto 6.3 % (3-14); Neutrophils Absolute Auto 5400 /uL (1500-7000); Platelet Count 268 X10^3/uL (150-400); Red Blood Cell Count 4.37 X10^6/uL (4.0-5.2); Red Cell Distribution Width 13.3 % (11.6-14.8); White Blood Cell Count 7.9 X10^3/uL (4.5-11.0)
[2022-09-15 10:55] LABS: COVID19 -Nasal RAPID Negative (Negative)
[2022-09-15] MEDS: LACTATED RINGERS 1,000 ML 100 ML IV (11:04)
[2022-09-15] MEDS: OXYTOCIN PREMIX 30 UNIT/500 ML PLAST..BAG IV (11:05)
[2022-09-15] MEDS: CALCIUM CARBONATE 500 MG TAB 1000 MG PO (11:34)
--- NOTE | 2022-09-15 16:13 | PM.OBPNLAB ---
Date/Time Date Patient Seen: 09/15/22 Time Patient Seen: 16:13 Pain Control Pain control: tolerating well and epidural Pelvic Exam Dilation (cm): 4.5 Effacement (%): 60 station: -2 Amniotic membrane status: Ruptured Comments: After informed consent, AROM performed with production of light blood-tinged fluid. Contractions Pitocin rate (mU/min): 12 Contraction frequency (min): 3 Contraction duration (min): 1 Contraction pattern: Regular Status status: Category l Heart Rate Baseline: 145 Monitor Accelerations: Present Monitor Decelerations: Absent Monitor Variability: Moderate Assessment and Plan Comments: 27yo at 37w6d here for IOL for oligohydramnios.? ROGELIO 4.3 today.? No other complications with .? GBS negative, Rh positive. AROM performed with production of light blood-tinged fluid. - Expectant management, anticipate - FHT reassuring - Epidural in place for pain control - Continue pitocin, titrate as tolerated - Plan for recheck of cervix in 2hrs to ensure making progress. If no change, consider placement IUPC.
[2022-09-15 19:14] VITALS: BP 119/69
--- NOTE | 2022-09-15 20:58 | PM.OBPRVD ---
Events: Oligohydramnios Labor & Delivery Delivery date: 09/15/22 Cervical ripening method: none Induction method: per pitocin protocol Delivery augmentation: rupture of membranes Delivery monitor: external FHT and external uterine Route of delivery: Episiotomy description: None L&D Laceration Description: None Quantitative Blood Loss: 300 Anesthesia Type: Epidural Complications: None Narrative: Patient complete and pushed x1. At 8:30 p.m., a live male delivered spontaneously over an intact perineum in the LOREE presentation. A nuchal cord x1 was reduced on the perineum. There was a compound presentation with the right arm. The remainder of the body delivered without difficulty and was placed on mom's abdomen. The cord was double clamped and cut. Cord bloods were obtained. Pitocin was given in the IV fluids. The placenta delivered intact with a three-vessel cord at 8:37 p.m.. The fundus was massaged to firm. No lacerations were noted. Apgars 9 at 1 minute and 9 at 5 minutes. Epidural analgesia. Mom and infant stable to recovery. . Baby 1: Infant gender: Male Presentation: vertex Position: Right Occiput Anterior (with right arm compounding) Placenta delivery description: Spontaneous Cord Vessel Description: 3 Vessels, Nuchal Cord (x1 ), Loose, Reduced and Clamped/Cut score (1 min): 9 score (5 min): 9 weight: 7 lb 14 oz Plan for aftercare: Routine care
[2022-09-16] MEDS: IBUPROFEN 600 MG TABLET PO ×3 (00:28→14:41)
[2022-09-16] MEDS: ACETAMINOPHEN 325 MG TABLET 650 MG PO ×3 (00:28→14:41)
[2022-09-16 06:15] LABS: Hematocrit 35.9 % (36-46); Hemoglobin 12.3 g/dL (12.0-16.0)
[2022-09-16] MEDS: DOCUSATE 100 MG CAPSULE PO (10:33)
[2022-09-16] MEDS: PRENATAL VIT,CALC/IRON/FOLIC 1 TABLET 1 TAB PO (10:35)
--- NOTE | 2022-09-16 12:45 | PM.OBDS.1 ---
Discharge Providers Provider Date of admission: 09/15/22 20:40 Discharge Date: 09/16/22 Primary care physician: Areli Hernandez MD Consults: 09/16/22 21:03 Consult to Terrazzo Installer Routine Comment: Discharge provider: Camila Guzmán MD Summary Hospital Course Date Patient Seen: 09/16/22 Time Patient Seen: 12:45 Diagnoses: 37-6/7 weeks gestation Oligohydramnios Pitocin induction of labor Artificial rupture of membranes Epidural analgesia Spontaneous vaginal delivery Hospital Course: Patient is a 27-year-old 4 para 3 who presented at 37-,6/7 weeks gestation for induction of labor with Pitocin due to oligohydramnios. She was started on Pitocin. Artificial rupture membranes was performed. She received an epidural for pain management. She had a spontaneous vaginal delivery without complication. Her course was unremarkable and she was discharged home on day # 1. Peripartum Data Infant Delivery Method: Natural Vaginal Laceration Description: None Episiotomy description: None Procedures: Pitocin induction of labor Artificial rupture of membranes Spontaneous vaginal delivery Epidural analgesia complications: none 1: Gender: Male Disposition of : home Status at Discharge Cognitive/behavioral status at discharge: oriented Functional status at discharge: independent ambulation Overall status at discharge: patient is back to baseline Time Spent with Patient Time attestation: Total time spent providing and/or coordinating discharge services: Time spent: Less than 30 minutes Objective Labs Result Diagrams: 09/16/22 05:40 Labs: Laboratory Results - last 24 hr 09/16/22 05:40 Hgb 12.3 Hct 35.9 L Exam Narrative Exam Narrative: Generally: Patient is sitting up in chair, no acute distress Fundus: Firm at U -1 Extremities: 1+ edema, negative Homans Discharge Plan Discharge Plan Patient Disposition: Home Provider Discharge Comment: Call with fever, chills, or bleeding vaginally more than a pad in an hour Ibuprofen 600 mg every 6 hours as needed for cramping Push oral fluids Discharge orders & Medications Prescriptions: Continued prenat.vits,reyes,sda-ltmj-yhxeu Tablet 1 tab PO DAILY albuterol sulfate [ProAir HFA] 90 mcg/actuation HFA aerosol inhaler 2 puff inhalation Q6H PRN Discontinued metoclopramide HCl 5 mg tablet 5 mg PO QACHS PRN (Reason: nausea and vomiting) Qty: 30 2RF ondansetron 4 mg tablet,disintegrating 4 mg PO Q8H PRN (Reason: nausea and vomiting) Qty: 30 1RF Follow up/Referrals: Areli Hernandez MD [Primary Care Provider] - 6 Weeks Diet/Activity/Treatments Diet: Regular Activity: Nothing in the vagina for 6 weeks Skin/Wound/Dressing Care Report to your healthcare provider any signs of infection, such as:: chills, fever, increased pain and unusual drainage Visit Report/Discharge Packet Instructions: DI for Labor and Delivery, Vaginal Discharge Data Primary Care Provider: Areli Hernandez
[2022-09-16 15:06] VITALS: BP 124/80; PULSE 78; RESP 17; TEMP 36.4
== END 2022-09-16 15:40 | disposition home or self-care (01) | DRG 807 ==
PROVIDERS: Obstetrics & Gynecology; Admitting Provider Family Medicine; PCP Family Medicine; Referring Provider Family Medicine; Visit Provider Family Medicine
DX: O41.03X0 Oligohydramnios, third trimester, not applicable or unspecified (principal); Z37.0 Single live birth; Z3A.37 37 weeks gestation of pregnancy; O32.6XX0 Maternal care for compound presentation, not applicable or unspecified; O69.81X0 Labor and delivery complicated by cord around neck, without compression, not applicable or unspecified; Z20.822 Contact with and (suspected) exposure to COVID-19; O26.893 Other specified pregnancy related conditions, third trimester; V43.53XA Car driver injured in collision with pick-up truck in traffic accident, initial encounter
CPT/HCPCS: 36415; 59025; 59050; 59400; 59409; 76815; 76819; 84112; 85014; 85018; 85025; 86850; 86900; 86901; 87635; C9803; G0378; G0379; J2590

== ENCOUNTER 2023-01-16 23:52 | Emergency (ER) | payer MEDICAID, SELFPAY ==
[2023-01-16 23:58] VITALS: O2SAT 99
[2023-01-16 23:59] VITALS: BP 158/78; PULSE 58; O2SAT 98
[2023-01-17] VITALS: BP 146/77; PULSE 56; O2SAT 99
[2023-01-17 00:01] VITALS: BP 132/60; PULSE 65; RESP 21; TEMP 36.8; O2SAT 98; BMI 28.1
--- NOTE | 2023-01-17 00:24 | ED.BACK ---
HPI - Back Pain/Injury General Chief Complaint: Back Pain/Injury Stated Complaint: back pain Time Seen by Provider: 01/17/23 00:09 Source: patient Mode of arrival: Ambulatory Limitations: no limitations History of Present Illness HPI Narrative: Patient is a 27-year-old female who is here for evaluation of midline upper back discomfort. She states she is had the discomfort off and on for the past month. It is worse with palpation. There is not 1 specific injury that caused the discomfort but she does lift heavy objects at work. She states she is having nausea and vomiting because of the pain. Related Data Home Medications Medication Instructions Recorded Confirmed albuterol sulfate 90 mcg/actuation 2 puff inhalation Q6H PRN 12/15/20 09/08/22 aerosol inhaler (ProAir HFA) prenat.vits,reyes,[id number]-ggtc-ixwiz 1 tab PO DAILY 12/15/20 09/08/22 Allergies Allergy/AdvReac Type Severity Reaction Status Date / Time cat dander Allergy Intermediate Sneezing, Verified 09/08/22 10:57 runny nose and watery eyes Review of Systems Musculoskeletal Musculoskeletal: Reports system reviewed and no additional complaints, except as documented Integumentary/Breasts Skin/Breast: Reports system reviewed and no additional complaints, except as documented Neurologic Neurologic: Reports system reviewed and no additional complaints, except as documented Patient History Medical History Anxiety and depression Asthma Chlamydia Eczema Post depression (~2018) Right arm fracture Spontaneous vaginal delivery (~06/13/11) (spontaneous vaginal delivery) (~10/20/18) Surgical History (Updated 02/20/22 @ 13:05 by Korina Urena RN) H/O dilation and curettage No history of previous surgery Family History (Updated 12/15/20 @ 12:48 by Roxanne Burton RN) Mother Asthma Father No problems noted. Grandmother Cancer Grandfather No problems noted. Grandmother Circulatory disorder Grandfather No problems noted. Brother Cleft palate Sister Asthma Social History marital status: details: Living with the father of the baby number of children: 2 household members: significant other and children lives independently: Yes housing: apartment pets and animals: Yes (Dogs, aware of Toxoplasmosis) education level: high school occupational status: employed current occupational exposures/hazards: No Previous occupational history: [employer] special umair needs: No seatbelt use: always water heater temp set < 120 deg: Yes (will check) working smoke detector in home: Yes fire extinguisher in home: Yes carbon monox detector in home: Yes firearms in home: No do you feel safe at home: Yes Smoking Status: Former smoker Tobacco: How many years used: 12 quit 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) alcohol intake: former substance use type: does not use and marijuana during the past year weight has: remained stable well-balanced diet: daily or most days daily servings fruits/ve-4 caffeine: Yes (200mg a day) Type(s) of exercise: irregular exercise Smoking Status: Former smoker alcohol intake frequency: 0-2 drinks per day Substance Use Type: does not use Exam Initial Vital Signs Initial Vital Signs: Vital Signs Pulse Oximetry 99 01/16/23 23:58 HENMT Head: normal to inspection Back/Spine/Pelvis Other: Discomfort with thoracic midline back pain and left-sided paraspinal and also left-sided thoracolumbar discomfort. Skin General: no rashes or lesions noted Extrem General: normal to inspection and capillary refill normal Course Orders Ordered: Discontinued Medications Cyclobenzaprine HCl (Cyclobenzaprine 10 Mg Prepack) 1 bottle MISC SEEINSTR ONE Stop: 01/17/23 00:25 Last Admin: 01/17/23 00:35 Dose: 1 bottle Documented By: GC Ondansetron HCl (Ondansetron 4 Mg Odt Prepack) 1 bottle MISC SEEINSTR ONE Stop: 01/17/23 00:25 Last Admin: 01/17/23 00:35 Dose: 1 bottle Documented By: GC Vital Signs Vital signs: Vital Signs - 8 hr 01/17/23 00:01 01/16/23 23:58 01/16/23 23:59 Temperature 98.2 F Pulse Rate 65 58 L Respiratory Rate 21 Blood Pressure 132/60 Pulse Oximetry 98 99 98 Oxygen Delivery Method Room Air 01/16/23 23:59 01/17/23 00:00 01/17/23 00:00 Temperature Pulse Rate 56 L Respiratory Rate Blood Pressure 158/78 H 146/77 H Pulse Oximetry 99 Oxygen Delivery Method 01/17/23 00:38 Temperature 97.4 F L Pulse Rate 78 Respiratory Rate 18 Blood Pressure 144/72 H Pulse Oximetry 98 Oxygen Delivery Method Room Air MDM - Back Pain/Injury MDM Narrative Medical decision making narrative: Patient's physical exam is clearly muscular in origin. Low suspicion for fracture. No indication for radiologic studies. Will send home with muscle relaxers. She was given return precautions. Discharge Plan Departure Patient Disposition: Home Clinical Impression: Back pain, thoracic Instructions: DI for Back Strain or Sprain Activity Restrictions/Additional Instructions: I do recommend that you use the muscle relaxers as needed. You can also do other conservative measures such as heat and ice and massage. Contact your primary doctor for a follow-up. Prescriptions: No Action prenat.vits,reyes,rql-iooj-fvoxi Tablet 1 tab PO DAILY albuterol sulfate [ProAir HFA] 90 mcg/actuation HFA aerosol inhaler 2 puff inhalation Q6H PRN Referrals: Areli Hernandez MD [Primary Care Provider] - Stand Alone Forms: Patient Portal/API
[2023-01-17] MEDS: CYCLOBENZAPRINE 10 MG PREPACK 1 BOTTLE MISC (00:35)
[2023-01-17] MEDS: ONDANSETRON 4 MG ODT PREPACK 1 BOTTLE MISC (00:35)
[2023-01-17 00:38] VITALS: BP 144/72; PULSE 78; RESP 18; TEMP 36.3; O2SAT 98
== END 2023-01-17 00:39 | disposition home or self-care (01) ==
PROVIDERS: Emergency Provider Emergency Medicine; PCP Family Medicine
DX: M54.6 Pain in thoracic spine (principal)
CPT/HCPCS: 99281

== ENCOUNTER 2023-08-20 18:36 | Emergency (ER) | payer MEDICAID, SELFPAY ==
[2023-08-20 18:40] VITALS: PULSE 67; RESP 16; TEMP 36.6; O2SAT 100; BMI 31.3
[2023-08-20 18:42] VITALS: BP 132/91
--- NOTE | 2023-08-20 18:43 | DI.US.S_ITS ---
PROCEDURE: US OB <= 14 WEEKS FETUS INDICATIONS: 12wks, cramping and bleeding OUTSIDE/PRIOR DATING DATA: Last menstrual period (LMP): 05/27/2023. LMP-based estimated date of delivery (AROLDO): 03/02/2024. First dating scan (date and location): 08/20/2023. Estimated date of delivery (AROLDO) from first dating scan: 02/23/2024. TECHNIQUE: Real-time scanning was performed of the fetus, with image documentation and biometric measurements. Endovaginal scanning: No COMPARISON: [facility], , OB <= 14 WEEKS FETUS, 04/01/2018, 2:31. FINDINGS: General: A single living intrauterine gestation is present. Presentation: Early. Placenta: Placental position is posterior , with complete previa. A single living intrauterine gestation is present with a crown-rump length of 70 mm corresponding to a 13 week 2 day gestation. Right ovarian corpus luteal cyst is present. Left ovary is not seen. IMPRESSION: 1. Single living intrauterine gestation. We strive to produce accurate, complete, and clear reports of imaging services. To assist us in improving patient care, this report was composed using standard report templates and voice recognition software. Therefore, it may contain abnormal punctuation, insertions and/or omissions. Occasional wrong-word or sound-alike substitutions may occur. Though we review the report and make efforts to correct it, we do recommend that the report be read carefully in proper context to recognize any text inaccuracies. Dictated by: Ivana Escalera M.D. on 08/20/2023 at 19:21 Approved by: Ivana Escalera M.D. on 08/20/2023 at 19:23
[2023-08-20 19:17] LABS: Add Manual Diff / Slide Review NO; Basophils Absolute Auto 100 /uL (0-100); Basophils Percent Auto 0.9 % (0-2); Eosinophils Absolute Auto 300 /uL (0-450); Eosinophils Percent Auto 2.8 % (2-4); Hematocrit 40.1 % (36-46); Hemoglobin 13.8 g/dL (12.0-16.0); Lymphocytes Absolute Auto 3300 /uL (1100-4500); Lymphocytes Percent Auto 33.5 % (25-40); Mean Corpuscular HGB Conc 34.3 % (30-36); Mean Corpuscular Hemoglobin 28.2 PG (26-34); Mean Corpuscular Volume 82.3 fL (80-100); Monocytes Absolute Auto 600 /uL (0-900); Monocytes Percent Auto 6.5 % (3-14); Neutrophils Absolute Auto 5500 /uL (1500-7000); Neutrophils Percent Auto 56.3 % (50-75); Platelet Count 336 X10^3/uL (150-400); Red Blood Cell Count 4.87 X10^6/uL (4.0-5.2); Red Cell Distribution Width 13.6 % (11.6-14.8); White Blood Cell Count 9.8 X10^3/uL (4.5-11.0)
[2023-08-20 19:27] LABS: Alanine Aminotransferase 23 IU/L (<35); Albumin 3.8 g/dL (3.5-5.0); Albumin Globulin Ratio 1.1 (1.0-2.8); Alkaline Phosphatase 83 U/L (38-126); Aspartate Aminotransferase 24 IU/L (14-36); Bilirubin Total 0.5 mg/dL (0.2-1.3); Blood Urea Nitrogen 4 mg/dL (7-17); Carbon Dioxide 23 mmol/L (22-32); Chloride 105 mmol/L (98-107); Estimated Glomerular Filt Rate > 60 mL/min (>60); Globulin 3.5 g/dL (1.7-4.1); Glucose 87 mg/dL (70-100); HEMOLYSIS < 15 (0-50); Potassium 3.4 mmol/L (3.4-5.1); Sodium 135 mmol/L (137-145); Total Protein 7.3 g/dL (6.3-8.2)
[2023-08-20 20:02] VITALS: BP 135/78; PULSE 74; RESP 20; O2SAT 98
[2023-08-20 20:07] LABS: HCG Quantitative /Beta subunit 47986 mIU/mL
[2023-08-20 20:09] LABS: Bacteria Urine Few (2-10); Culture Indicated Urine Cult Not Indicated; RBC Urine 1-5/HPF (0-5/HPF); Squamous Epithelial Cell Urine 1-5 /HPF (0-5/HPF); WBC Urine 1-5/HPF (0-5/HPF)
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
[2023-08-20 21:14] VITALS: BP 135/80; PULSE 76; O2SAT 99
== END 2023-08-20 21:10 | disposition home or self-care (01) ==
PROVIDERS: Emergency Provider Emergency Medicine; PCP Family Medicine
DX: O44.11 Complete placenta previa with hemorrhage, first trimester (principal); R10.2 Pelvic and perineal pain; Z3A.13 13 weeks gestation of pregnancy
CPT/HCPCS: 36415; 76801; 80053; 81003; 81015; 84702; 85025; 86850; 86900; 86901; 99284

== ENCOUNTER → 2023-10-19 10:29 | Outpatient (CLI) | payer MEDICAID, SELFPAY ==
[2023-10-19 11:50] LABS: Add Manual Diff / Slide Review NO; Basophils Absolute Auto 0 /uL (0-100); Basophils Percent Auto 0.4 % (0-2); Eosinophils Absolute Auto 200 /uL (0-450); Eosinophils Percent Auto 2.1 % (2-4); Hematocrit 38.3 % (36-46); Lymphocytes Absolute Auto 2300 /uL (1100-4500); Lymphocytes Percent Auto 23.2 % (25-40); Mean Corpuscular HGB Conc 34.1 % (30-36); Mean Corpuscular Hemoglobin 28.8 PG (26-34); Mean Corpuscular Volume 84.5 fL (80-100); Monocytes Absolute Auto 400 /uL (0-900); Monocytes Percent Auto 4.5 % (3-14); Neutrophils Absolute Auto 6800 /uL (1500-7000); Neutrophils Percent Auto 69.8 % (50-75); Platelet Count 296 X10^3/uL (150-400); Red Blood Cell Count 4.53 X10^6/uL (4.0-5.2); Red Cell Distribution Width 13.4 % (11.6-14.8); White Blood Cell Count 9.8 X10^3/uL (4.5-11.0)
[2023-10-20 08:02] LABS: RPR Screen Non Reactive (Non Reactive)
[2023-10-20 13:34] LABS: Varicella IgG Antibody <135 index (Immune >165)
[2023-10-22 14:42] LABS: AFP, Serum 63.9 ng/mL (.); Inhibin A, Dimeric 98.59 pg/mL (.); Inhibin A, MoM 0.57 (.); Maternal Ethnicity Other (.); Maternal Weight 204 lbs (.); Number of Fetuses No (.); OSBR Risk 1 IN 6916 (.); Results Report (.); Test Results *Screen Negative* (.); hCG, MoM 0.96 (.); hCG, Serum 19269 mIU/mL (.)
[2023-10-22 17:44] LABS: HIV 1 & 2 Ab/Ag 4th Gen Combo NEGATIVE (NEGATIVE); Hep C Virus Ab w/Reflex Quant NEGATIVE s/c (NEGATIVE); Hepatitis B Surface Antigen NEGATIVE s/c (NEGATIVE)
== END ==
PROVIDERS: PCP Family Medicine; Referring Provider Family Medicine; Visit Provider Family Medicine
DX: Z34.80 Encounter for supervision of other normal pregnancy, unspecified trimester (principal)
CPT/HCPCS: 36415; 80055; 82105; 82677; 84702; 86336; 86787; 86803; 86850; 86900; 86901; 87389

== ENCOUNTER 2024-01-15 11:39 | Outpatient (CLI) | payer OTHER, MEDICAID, SELFPAY ==
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
== END 2024-01-15 12:50 | disposition home or self-care (01) ==
LOC: LABOR 12:39 → OB 01-21 10:34
PROVIDERS: PCP Family Medicine; Referring Provider Family Medicine; Visit Provider Family Medicine
DX: N89.8 Other specified noninflammatory disorders of vagina (principal); Z36.9 Encounter for antenatal screening, unspecified
CPT/HCPCS: 59025; 84112; 87653; G0378; G0379

== ENCOUNTER → 2024-01-15 14:18 | Outpatient (CLI) | payer OTHER, MEDICAID, SELFPAY ==
[2024-01-16 15:24] LABS: Strep Grp B PCR NEG for Grp B Strep
== END ==
PROVIDERS: PCP Family Medicine; Visit Provider Family Medicine
DX: Z34.80 Encounter for supervision of other normal pregnancy, unspecified trimester (principal)
CPT/HCPCS: 87653

== ENCOUNTER 2024-02-02 20:49 | Outpatient (CLI) | payer MEDICAID, OTHER, SELFPAY ==
[2024-02-02 22:09] LABS: Creatinine Urine Random 97.8 mg/dL
[2024-02-02 22:13] LABS: Add Manual Diff / Slide Review NO; Basophils Absolute Auto 100 /uL (0-100); Basophils Percent Auto 0.9 % (0-2); Eosinophils Absolute Auto 200 /uL (0-450); Eosinophils Percent Auto 1.8 % (2-4); Hematocrit 36.8 % (36-46); Hemoglobin 12.4 g/dL (12.0-16.0); Lymphocytes Absolute Auto 2600 /uL (1100-4500); Lymphocytes Percent Auto 23.3 % (25-40); Mean Corpuscular HGB Conc 33.6 % (30-36); Mean Corpuscular Hemoglobin 27.7 PG (26-34); Mean Corpuscular Volume 82.5 fL (80-100); Monocytes Absolute Auto 600 /uL (0-900); Monocytes Percent Auto 5.3 % (3-14); Neutrophils Absolute Auto 7600 /uL (1500-7000); Neutrophils Percent Auto 68.7 % (50-75); Platelet Count 241 X10^3/uL (150-400); Red Blood Cell Count 4.46 X10^6/uL (4.0-5.2)
[2024-02-02 22:16] LABS: Protein (Total) Urine Random < 5 mg/dL (0-12); Protein Creatinine Ratio Urine 0.05 GRAM/24H
[2024-02-02 22:24] LABS: Alanine Aminotransferase 20 IU/L (<35); Albumin 3.5 g/dL (3.5-5.0); Albumin Globulin Ratio 1.1 (1.0-2.8); Alkaline Phosphatase 167 U/L (38-126); Aspartate Aminotransferase 28 IU/L (14-36); Bilirubin Total 0.4 mg/dL (0.2-1.3); Blood Urea Nitrogen 6 mg/dL (7-17); Calcium 8.7 mg/dL (8.4-10.2); Carbon Dioxide 18 mmol/L (22-32); Chloride 110 mmol/L (98-107); Estimated Glomerular Filt Rate > 60 mL/min (>60); Globulin 3.2 g/dL (1.7-4.1); Glucose 99 mg/dL (70-100); HEMOLYSIS < 15 (0-50); Potassium 3.7 mmol/L (3.4-5.1); Sodium 135 mmol/L (137-145); Total Protein 6.7 g/dL (6.3-8.2)
== END 2024-02-02 22:48 | disposition home or self-care (01) ==
LOC: OB 02-04 09:30
PROVIDERS: PCP Family Medicine; Referring Provider Obstetrics & Gynecology; Visit Provider Obstetrics & Gynecology
DX: O47.1 False labor at or after 37 completed weeks of gestation (principal); Z3A.37 37 weeks gestation of pregnancy
CPT/HCPCS: 36415; 59025; 80053; 82570; 84156; 85025; G0378; G0379

== ENCOUNTER 2024-02-11 12:48 | Observation (INO) | payer OTHER, MEDICAID, SELFPAY ==
[2024-02-11 13:44] LABS: Add Manual Diff / Slide Review NO; Basophils Absolute Auto 100 /uL (0-100); Basophils Percent Auto 0.6 % (0-2); Eosinophils Absolute Auto 200 /uL (0-450); Eosinophils Percent Auto 1.9 % (2-4); Hematocrit 36.3 % (36-46); Hemoglobin 12.2 g/dL (12.0-16.0); Lymphocytes Absolute Auto 2100 /uL (1100-4500); Lymphocytes Percent Auto 26.3 % (25-40); Mean Corpuscular HGB Conc 33.7 % (30-36); Mean Corpuscular Volume 82.8 fL (80-100); Monocytes Absolute Auto 500 /uL (0-900); Monocytes Percent Auto 6.6 % (3-14); Neutrophils Absolute Auto 5300 /uL (1500-7000); Neutrophils Percent Auto 64.6 % (50-75); Platelet Count 216 X10^3/uL (150-400); Red Blood Cell Count 4.38 X10^6/uL (4.0-5.2); Red Cell Distribution Width 14.6 % (11.6-14.8); White Blood Cell Count 8.1 X10^3/uL (4.5-11.0)
[2024-02-11 13:53] LABS: Alanine Aminotransferase 17 IU/L (<35); Albumin 3.3 g/dL (3.5-5.0); Alkaline Phosphatase 164 U/L (38-126); Aspartate Aminotransferase 34 IU/L (14-36); BUN Creatinine Ratio 13.6 (6-22); Bilirubin Total 0.5 mg/dL (0.2-1.3); Blood Urea Nitrogen 6 mg/dL (7-17); Calcium 8.3 mg/dL (8.4-10.2); Carbon Dioxide 19 mmol/L (22-32); Chloride 112 mmol/L (98-107); Estimated Glomerular Filt Rate > 60 mL/min (>60); Globulin 3.3 g/dL (1.7-4.1); Glucose 90 mg/dL (70-100); HEMOLYSIS < 15 (0-50); Potassium 3.4 mmol/L (3.4-5.1); Sodium 136 mmol/L (137-145); Total Protein 6.6 g/dL (6.3-8.2)
[2024-02-11 14:47] LABS: Creatinine Urine Random 237.4 mg/dL; Protein (Total) Urine Random 10 mg/dL (0-12); Protein Creatinine Ratio Urine 0.04 GRAM/24H
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
== END 2024-02-11 15:14 | disposition home or self-care (01) ==
PROVIDERS: Admitting Provider Family Medicine; PCP Family Medicine; Referring Provider Family Medicine; Visit Provider Family Medicine
DX: Z03.71 Encounter for suspected problem with amniotic cavity and membrane ruled out (principal)
CPT/HCPCS: 59025; 80053; 82570; 84112; 84156; 85025; G0378; G0379

== ENCOUNTER 2024-02-12 07:35 | Inpatient (IN) | payer OTHER, MEDICAID, SELFPAY ==
[2024-02-12] MEDS: LACTATED RINGERS 1,000 ML 100 ML IV (08:15)
[2024-02-12 09:03] LABS: Add Manual Diff / Slide Review NO; Basophils Absolute Auto 100 /uL (0-100); Basophils Percent Auto 0.8 % (0-2); Eosinophils Absolute Auto 200 /uL (0-450); Eosinophils Percent Auto 2.4 % (2-4); Hematocrit 36.3 % (36-46); Hemoglobin 12.1 g/dL (12.0-16.0); Lymphocytes Absolute Auto 2400 /uL (1100-4500); Lymphocytes Percent Auto 24.6 % (25-40); Mean Corpuscular HGB Conc 33.5 % (30-36); Mean Corpuscular Hemoglobin 27.7 PG (26-34); Mean Corpuscular Volume 82.8 fL (80-100); Monocytes Absolute Auto 600 /uL (0-900); Monocytes Percent Auto 5.8 % (3-14); Neutrophils Absolute Auto 6400 /uL (1500-7000); Neutrophils Percent Auto 66.4 % (50-75); Platelet Count 204 X10^3/uL (150-400); Red Blood Cell Count 4.38 X10^6/uL (4.0-5.2); Red Cell Distribution Width 14.7 % (11.6-14.8); White Blood Cell Count 9.7 X10^3/uL (4.5-11.0)
[2024-02-12] MEDS: OXYTOCIN PREMIX 30 UNIT/500 ML PLAST..BAG IV (09:23)
[2024-02-12 09:37] LABS: Alanine Aminotransferase 17 IU/L (<35); Albumin 3.2 g/dL (3.5-5.0); Albumin Globulin Ratio 0.9 (1.0-2.8); Alkaline Phosphatase 165 U/L (38-126); Aspartate Aminotransferase 32 IU/L (14-36); BUN Creatinine Ratio 15.8 (6-22); Bilirubin Total 0.4 mg/dL (0.2-1.3); Blood Urea Nitrogen 6 mg/dL (7-17); Calcium 8.4 mg/dL (8.4-10.2); Carbon Dioxide 17 mmol/L (22-32); Chloride 111 mmol/L (98-107); Estimated Glomerular Filt Rate > 60 mL/min (>60); Globulin 3.4 g/dL (1.7-4.1); Glucose 118 mg/dL (70-100); HEMOLYSIS < 15 (0-50); Potassium 3.1 mmol/L (3.4-5.1); Sodium 136 mmol/L (137-145); Total Protein 6.6 g/dL (6.3-8.2)
[2024-02-12 09:46] VITALS: BP 150/75
[2024-02-12 10:07] LABS: Creatinine Urine Random 177.7 mg/dL; Protein (Total) Urine Random 11 mg/dL (0-12); Protein Creatinine Ratio Urine 0.06 GRAM/24H
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
--- NOTE | 2024-02-12 13:09 | PM.OBPNLAB ---
Date/Time Date Patient Seen: 02/12/24 Time Patient Seen: 13:09 Pain Control Pain control: tolerating well Pelvic Exam Dilation (cm): 5.5 Effacement (%): 70 station: -2 Amniotic membrane status: Ruptured Comments: After informed consent, AROM performed with clear fluid present. Contractions Monitor mode: External Pitocin rate (mU/min): 10 Contraction frequency (min): 2 Status status: Category l Heart Rate Baseline: 140 Monitor Accelerations: Present Monitor Decelerations: Absent Monitor Variability: Moderate Assessment and Plan Comments: 28yo at 39w0d here for IOL for gestational HTN. Pt asymptomatic, no evidence of pre-eclampsia/HELLP on labs today. Initial BPs in severe range however now in acceptable range without medications. No indication for treatment at this time. GBS negative, Rh positive. AROM performed with clear fluid present. - Continue pitocin, titrate as tolerated - FHT reassuring - Epidural for pain control when desired
--- NOTE | 2024-02-12 15:35 | PM.OBPRVD ---
Events: Induced HTN Labor & Delivery Delivery date: 02/12/24 Induction method: per pitocin protocol Delivery augmentation: rupture of membranes Delivery monitor: external FHT and external uterine Route of delivery: Episiotomy description: None L&D Laceration Description: None Quantitative Blood Loss: 100 Anesthesia Type: Epidural Complications: None Narrative: PROCEDURE: at 39w0d presented for IOL due to gestational HTN and was admitted to Labor and Delivery. She was initiated on pitocin. The patient progressed through the 1st stage over 2 hours. AROM occurred at 13:06 with clear fluid. Pain was controlled with an epidural. The patient progressed through the 2nd stage over 21 minutes and delivered a viable male infant with APGARs 9/9 at 15:21 via without complications. The cord was cut and clamped after it stopped pulsating. The placenta delivered with gentle cord traction, and appeared complete. It was noted to have a marginal cord insertion, and will be sent to pathology. The perineum and vagina were inspected with no lacerations. Needle and sponge counts were correct.? The vagina was inspected and no items were left in situ. Medina was doing well with her and at bedside. PREPROCEDURE DIAGNOSIS: Intrauterine at 39w0d Gestational HTN GBS negative RH positive POSTPROCEDURE DIAGNOSIS: Intrauterine at 39w0d, delivered Same as preprocedure Marginal cord insertion Baby 1: Infant gender: Male Presentation: vertex Position: Left Occiput Anterior Placenta delivery description: Spontaneous Cord Vessel Description: 3 Vessels score (1 min): 9 score (5 min): 9 weight: 8 lb 15.636 oz Plan for aftercare: Routine care
--- NOTE | 2024-02-12 16:27 | PM.AN.REGBLK ---
Regional Block Pre-procedure Procedure: Continuous Lumbar Epidural for L&D Attending OB provider: Areli Hernandez PMH/ROS narrative: Negative Exam narrative: in active labor ASA Class: II Labs: Hct 36.3 % (36-46) 02/12/24 08:10 Plt Count 204 X10^3/uL (150-400) 02/12/24 08:10 Medications: Current Medications Generic Name Dose Route Start Last Admin Trade Name Freq PRN Reason Stop Dose Admin Calcium Carbonate 1,000 mg 02/12/24 08:18 Calcium Carbonate 500 Mg Tab PO Q4HR PRN Dyspepsia Carboprost Tromethamine 250 mcg 02/12/24 08:18 Carboprost 250 Mcg/Ml Ampul IM Q90M PRN Bleeding Diphenhydramine HCl 25 mg 02/12/24 14:15 Diphenhydramine 50 Mg/Ml Vial IV Q10M PRN Pruritis Diphenhydramine HCl 25 mg 02/12/24 14:18 Diphenhydramine 50 Mg/Ml Vial IV 02/13/24 14:19 Q3HR PRN PRURITUS Ephedrine Sulfate 10 mg 02/12/24 14:15 Ephedrine 50 Mg/Ml Vial IV Q5M PRN Blood pressure decrease more than 20% of baseline. Fentanyl 50 mcg 02/12/24 08:18 Fentanyl 100 Mcg/2 Ml Inj IV Q1H PRN Pain, Moderate (4-6) Oxytocin/Lactated Ringer's 30 unit in 500 mls @ 2 mls/hr 02/12/24 08:30 02/12/24 09:23 Oxytocin Premix IV 2 milliunit/min TITRATE OMAR 2 mls/hr Administration Protocol 2 MILLIUNIT/MIN Lactated Ringer's 1,000 mls @ 100 mls/hr 02/12/24 08:30 02/12/24 08:15 Lactated Ringers IV 100 mls/hr CONT OMAR Administration Oxytocin/Lactated Ringer's 30 unit in 500 mls @ 200 mls/hr 02/12/24 08:18 Oxytocin Premix IV CONT PRN Bleeding Protocol Tranexamic Acid 1,000 mg/ 100 mls @ 200 mls/hr 02/12/24 08:18 Sodium Chloride IV NOW PRN Bleeding FENT 2MCG/ML BUPIV 0.125% EPI 200 mcg in 100 mls @ 6 mls/hr 02/12/24 14:15 Fentanyl/Bupiv/Ns 2mcg/Ml - 0.125% EPIDURAL CONT OMAR Lidocaine HCl 20 ml 02/12/24 08:18 Lidocaine 1% 20 Ml INJ INTRA-OP PRN Post Delivery Methylergonovine Maleate 0.2 mg 02/12/24 08:18 Methylergonovine 0.2 Mg/Ml Vial IM NOW PRN Bleeding Methylergonovine Maleate 0.2 mg 02/12/24 08:18 Methylergonovine 0.2 Mg Tablet PO Q6HR PRN Heavy Bleeding Misoprostol 400 mcg 02/12/24 08:18 Misoprostol 200 Mcg Tablet SL NOW PRN Bleeding Misoprostol 800 mcg 02/12/24 08:18 Misoprostol 200 Mcg Tablet WV NOW PRN Bleeding Nalbuphine HCl 2.5 mg 02/12/24 14:15 Nalbuphine 20 Mg/Ml Ampul IV Q10M PRN Pruritis Nalbuphine HCl 5 mg 02/12/24 14:18 Nalbuphine 20 Mg/Ml Ampul IV Q6H PRN PRURITIS Naloxone HCl 0.2 mg 02/12/24 08:18 Naloxone 0.4 Mg/Ml Vial IV Q2MIN PRN Opiate Reversal Ondansetron HCl 4 mg 02/12/24 08:18 Ondansetron 4 Mg/2 Ml Inj IV Q4HR PRN Nausea And Vomiting Oxytocin 10 unit 02/12/24 08:18 Oxytocin 10 Unit/Ml Vial IM NOW PRN Bleeding Potassium Chloride 40 meq 02/12/24 11:00 Potassium Chloride 20 Meq Tab PO 02/12/24 17:01 Q6H OMAR Sodium Chloride 10 ml 02/12/24 09:00 Sodium Chloride 0.9% Flush IV BID OMAR Sodium Chloride 10 ml 02/12/24 08:18 Sodium Chloride 0.9% Flush IV PRN PRN Flush Sodium Chloride 10 ml 02/12/24 21:00 Sodium Chloride 0.9% Flush IV BID OMAR Sodium Chloride 10 ml 02/12/24 14:15 Sodium Chloride 0.9% Flush IV PRN PRN Flush Allergies: Allergies Allergy/AdvReac Type Severity Reaction Status Date / Time cat dander Allergy Intermediate Sneezing, Verified 02/08/24 11:05 runny nose and watery eyes Procedure Insertion date: 02/12/24 Insertion time: 14:35 Prep/Local: betadine x3 and 1% lidocaine Interspace: L3-4 Patient position: sitting Needle: 18 gauge Julissa Loss of resistance with: saline ELIA at (cm): 6 Catheter placed at SKIN (cm): 14 Catheter in SPACE (cm): 8 Sensory level: T9 Insertion: No CSF, No Blood, No Paresthesia with insertion, No Paresthesia with injection and No Test dose reaction Initial Medications TEST DOSE time: 14:40 TEST DOSE: 1.5% lidocaine with epinephrine 1:200k (mL): 3 BOLUS DOSE time: 14:45 BOLUS DOSE (mL): 10 BOLUS DOSE med: other (bupivacaine 0.25% plus Fentanyl 100 mcg) Infusion Initial rate (mL/hr): 8 Subsequent interventions: [id number] Called for discomfort. Patient now complete. Given 5ml 0.25% bupivacaine bolus. No complications, VSS. Patient to begin pushing. Post-procedure Anesthesia date START: 02/12/24 Anesthesia time START: 14:30 Anesthesia date END: 02/12/24 Anesthesia time END: 15:31 Post-procedure Anesthesia Assessment: Yes CV function: HR/BP stable, Yes Resp function: RR/sat/airway adequate, Yes Pain control adequate and No Anesthesia complications
--- NOTE | 2024-02-12 16:51 | PATH_ITS ---
[facility] Accession Number: [id number] No. of containers..01 Tissue . 01 Material submitted: . placenta - PLACENTA . 01 Diagnosis: PLACENTA: Intact mclean placenta with features of maturation consistent with third trimester gestational age. Marginally inserted three-vessel umbilical cord; no evidence of funisitis, arteritis, true knots, or thrombi. Unremarkable membranes with no evidence of meconium staining or features of chorioamnionitis. Placental cotyledon parenchyma with no significant pathologic alterations. No evidence of villitis, infarcts, or features of abruption. [facility] 02/19/2024 1034 Local . 01 Electronically signed: . Fanny Miller MD, Pathologist NPI- [id number] . 01 Gross description: . Received in formalin with two identifiers and placenta, is a discoid mclean placenta measuring 15.8 x 15.3 x 2.6 cm with no accessory lobes. . The membranes were received detached and are ocasio and are ocasio and translucent with no discoloration or thickening identified. They insert and are diffusely ruptured at the margin. . The cord measures 51.6 cm in length and is diffusely thickened, averaging 2.3 cm in average diameter with a rightward coil and an index of approximately 1 twist per 5 cm. The cord inserts marginally with a very slight possible velamentous insertion of approximately 1.5 cm in length. The cut surface is sticky and gelatinous with trivascular architecture and no knots of lesions identified. . The surface is purple-blue with normal arborizing vasculature and no discoloration or lesions identified. . The maternal surface is apparently complete with no lesions or adherent hemorrhage identified. The cut surface is red and spongy with no discoloration or lesions identified. . Market Editor sections are submitted as follows: A1: Membrane roll and placental end of cord. A2: Membrane and end of cord. A3-A4: Central full thickness unremarkable sections. . Photographs taken. ([id number]) /MRV 02/19/2024 1256 Local . 01 Pathologist provided ICD-10: O13.3, O13.9 . 01 CPT . 905270 Performed at: 01 [facility] [address] [place] [address], [place], [place] [id number] MD Ollie Koenig MD Phone: [phone]
[2024-02-12] MEDS: TRANEXAMIC ACID 1,000 MG in SODIUM CHLORIDE 0.9% 100 ML 200 MG IV (17:28)
[2024-02-13] MEDS: ACETAMINOPHEN 325 MG TABLET 650 MG PO ×3 (02:50→16:05)
[2024-02-13 06:24] LABS: Add Manual Diff / Slide Review NO; Basophils Absolute Auto 100 /uL (0-100); Basophils Percent Auto 0.6 % (0-2); Eosinophils Absolute Auto 200 /uL (0-450); Eosinophils Percent Auto 1.8 % (2-4); Hematocrit 31.8 % (36-46); Hemoglobin 10.8 g/dL (12.0-16.0); Lymphocytes Absolute Auto 2500 /uL (1100-4500); Lymphocytes Percent Auto 23.3 % (25-40); Mean Corpuscular HGB Conc 33.8 % (30-36); Mean Corpuscular Volume 82.7 fL (80-100); Monocytes Absolute Auto 600 /uL (0-900); Monocytes Percent Auto 5.9 % (3-14); Neutrophils Absolute Auto 7200 /uL (1500-7000); Neutrophils Percent Auto 68.4 % (50-75); Platelet Count 189 X10^3/uL (150-400); Red Blood Cell Count 3.84 X10^6/uL (4.0-5.2); Red Cell Distribution Width 14.7 % (11.6-14.8); White Blood Cell Count 10.6 X10^3/uL (4.5-11.0)
[2024-02-13] MEDS: IBUPROFEN 600 MG TABLET PO ×2 (06:38→13:03)
[2024-02-13 08:59] VITALS: BP 158/81; PULSE 79
[2024-02-13] MEDS: LABETALOL 100 MG TABLET PO (08:59)
[2024-02-13] MEDS: PRENATAL VIT,CALC/IRON/FOLIC 1 TABLET 1 TAB PO (09:00)
[2024-02-13] MEDS: DOCUSATE 100 MG CAPSULE PO (09:00)
--- NOTE | 2024-02-13 13:00 | PM.OBDS.1 ---
Discharge Providers Provider Date of admission: 02/12/24 07:35 Discharge Date: 02/13/24 Primary care physician: Areli Hernandez MD Consults: 02/13/24 15:38 Consult to [employer] Routine Comment: Discharge provider: Areli Hernandez MD Summary Hospital Course Date Patient Seen: 02/13/24 Diagnoses: Intrauterine at 39w0d Gestational HTN GBS negative RH positive Marginal cord insertion Hospital Course: The pt presented for IOL due to gestational HTN. She received pitocin for induction. AROM was performed with clear fluid present. She had an epidural for pain control. She progressed to complete and had an uncomplicated of a viable baby boy. there was heavier bleeding after initially having good tone. This improved with urination and TXA. There were no additional complications. At the time of discharge she was voiding, ambulating, and passing flatus without difficulty. Her lochia was decreasing appropriately. Her pain was well controlled. The pts BPs were frequently > 150 systolic. She was initiated on Labetalol PO, with good control. She will f/u in 1 week for BP check. Peripartum Data Infant Delivery Method: Natural Vaginal Laceration Description: None Episiotomy description: None Procedures: Spontaneous vaginal delivery complications: none [place] 1: Gender: Male Disposition of : home Time Spent with Patient Time attestation: Total time spent providing and/or coordinating discharge services: Objective Labs 02/13/24 06:13 02/12/24 08:10 Labs: Laboratory Results - last 24 hr 02/13/24 06:13 WBC 10.6 RBC 3.84 L Hgb 10.8 L Hct 31.8 L MCV 82.7 MCH 28.0 MCHC 33.8 RDW 14.7 Plt Count 189 Neut % (Auto) 68.4 Lymph % (Auto) 23.3 L [place] % (Auto) 5.9 Eos % (Auto) 1.8 L Baso % (Auto) 0.6 Neut # (Auto) 7200 H Lymph # (Auto) 2500 [place] # (Auto) 600 Eos # (Auto) 200 Baso # (Auto) 100 Exam Vital Signs (past 8 hours): - 02/13/24 08:59 Pulse Rate 79 Blood Pressure 158/81 H Narrative Exam Narrative: Gen: NAD, sitting comfortably in bed, appears well CV: RRR, no murmurs Resp: clear to auscultation bilaterally Abd: soft, appropriately tender, fundus firm and below the umbilicus, nondistended Ext: no edema Discharge Plan Discharge Plan Patient Disposition: Home Discharge orders & Medications Prescriptions: New acetaminophen 325 mg Tablet 650 mg PO Q6HR PRN (Reason: Pain, Mild (1-3)) Qty: 30 0RF docusate sodium 100 mg Capsule 100 mg PO DAILY Qty: 30 0RF ibuprofen 600 mg Tablet 600 mg PO Q6HR PRN (Reason: Pain, Mild (1-3)) Qty: 60 0RF Continued prenat.vits,reyes,kqs-fjfp-nprmx Tablet 1 tab PO DAILY albuterol sulfate [ProAir HFA] 90 mcg/actuation HFA aerosol inhaler 2 puff inhalation Q6H PRN (Reason: asthma) Follow up/Referrals: Areli Hernandez MD [Primary Care Provider] - 6 Weeks Diet/Activity/Treatments Diet: Diet as Tolerated and Regular Skin/Wound/Dressing Care Report to your healthcare provider any signs of infection, such as:: chills, fever, increased pain and unusual drainage Visit Report/Discharge Packet Instructions: DI for Labor and Delivery, Vaginal Stand Alone Forms: Patient Portal/API, Stroke Signs & Symptoms Discharge Data Primary Care Provider: Areli Hernandez
[2024-02-13 13:24] VITALS: BP 142/79; PULSE 80; RESP 16; TEMP 36.8
[2024-02-13] MEDS: MEASLES,MUMPS,RUBELLA VACC/PF 0.5 ML VIAL SUBCUT (16:08)
== END 2024-02-13 16:50 | disposition home or self-care (01) | DRG 807 ==
PROVIDERS: Admitting Provider Family Medicine; PCP Family Medicine; Referring Provider Family Medicine; Visit Provider Family Medicine
DX: O13.4 Gestational [pregnancy-induced] hypertension without significant proteinuria, complicating childbirth (principal); Z37.0 Single live birth; Z3A.39 39 weeks gestation of pregnancy; Z03.71 Encounter for suspected problem with amniotic cavity and membrane ruled out
CPT/HCPCS: 36415; 59025; 59050; 80053; 82570; 84112; 84156; 85025; 86850; 86900; 86901; G0378; G0379; J2590; J3010

== ENCOUNTER 2024-12-14 13:52 | Emergency (ER) | payer OTHER, MEDICAID, SELFPAY ==
[2024-12-14 14:01] VITALS: BP 125/76; PULSE 69; RESP 17; TEMP 36.3; O2SAT 97; BMI 32.8
--- NOTE | 2024-12-14 14:05 | DI.US.S_ITS ---
PROCEDURE: US OB <= 14 WEEKS FETUS INDICATIONS: 8wks, bleeding OUTSIDE/PRIOR DATING DATA: Last menstrual period (LMP): 10/19/2024 LMP-based estimated date of delivery (AROLDO): 07/26/2025 TECHNIQUE: Real-time scanning was performed of the fetus and maternal pelvic organs, with image documentation. Endovaginal scanning was also performed to better visualize the fetus and maternal ovaries. COMPARISON: [facility], , US OB <= 14 WEEKS FETUS, 08/20/2023, 18:53. FINDINGS: Intrauterine fluid collection is seen with mean sac diameter of 1.8 cm, compatible with an estimated gestational age of 8 weeks 0 days. No pole or yolk sac is seen. Perigestational sac hemorrhage measures approximately 2.6 x 0.6 x 2.1 cm. Maternal organs: No suspicious adnexal mass. Ovaries appear normal. IMPRESSION: 1. Findings suspicious but nondiagnostic for early failure. Intrauterine gestational sac with mean diameter 18 mm without yolk sac or pole. Recommend follow-up ultrasound in 7-13 days for further evaluation as well as correlation with clinical findings and beta HCG measurements. 2. Small perigestational sac hemorrhage. Approved by: Jon Machuca M.D. on 12/14/2024 at 15:45
[2024-12-14 14:27] LABS: Add Manual Diff / Slide Review NO; Basophils Absolute Auto 100 /uL (0-100); Basophils Percent Auto 0.7 % (0-2); Eosinophils Absolute Auto 500 /uL (0-450); Eosinophils Percent Auto 5.7 % (2-4); Hematocrit 42.2 % (36-46); Hemoglobin 14.3 g/dL (12.0-16.0); Lymphocytes Absolute Auto 2700 /uL (1100-4500); Lymphocytes Percent Auto 30.8 % (25-40); Mean Corpuscular Volume 85.3 fL (80-100); Monocytes Absolute Auto 600 /uL (0-900); Monocytes Percent Auto 6.6 % (3-14); Neutrophils Absolute Auto 5000 /uL (1500-7000); Neutrophils Percent Auto 56.2 % (50-75); Platelet Count 302 X10^3/uL (150-400); Red Blood Cell Count 4.94 X10^6/uL (4.0-5.2); Red Cell Distribution Width 13.4 % (11.6-14.8); White Blood Cell Count 8.9 X10^3/uL (4.5-11.0)
[2024-12-14 14:38] LABS: Alanine Aminotransferase 30 IU/L (<35); Albumin 4.2 g/dL (3.5-5.0); Albumin Globulin Ratio 1.3 (1.0-2.8); Alkaline Phosphatase 90 U/L (38-126); Aspartate Aminotransferase 30 IU/L (14-36); BUN Creatinine Ratio 12.3 (6-22); Bilirubin Total 0.5 mg/dL (0.2-1.3); Blood Urea Nitrogen 7 mg/dL (7-17); Calcium 8.8 mg/dL (8.4-10.2); Carbon Dioxide 20 mmol/L (22-32); Chloride 107 mmol/L (98-107); Estimated Glomerular Filt Rate > 60 mL/min (>60); Globulin 3.2 g/dL (1.7-4.1); Glucose 102 mg/dL (70-100); HEMOLYSIS < 15 (0-50); Potassium 3.8 mmol/L (3.4-5.1); Sodium 137 mmol/L (137-145); Total Protein 7.4 g/dL (6.3-8.2)
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
[2024-12-14 15:20] LABS: HCG Quantitative /Beta subunit 19533 mIU/mL
[2024-12-14 18:02] LABS: Urine Volume 10mL (spun)
[2024-12-14 18:07] LABS: Bacteria Urine None Seen; Culture Indicated Urine Cult Not Indicated; RBC Urine None Seen (0-5/HPF); Squamous Epithelial Cell Urine 0-1 /HPF (0-5/HPF); WBC Urine None Seen (0-5/HPF)
[2024-12-14 18:28] VITALS: BP 124/76; PULSE 74; RESP 16; O2SAT 98
[2024-12-14 18:45] VITALS: TEMP 36.1
== END 2024-12-14 18:36 | disposition home or self-care (01) ==
PROVIDERS: Emergency Medicine; Emergency Provider Physician Assistant; PCP Family Medicine
DX: S16.1XXA Strain of muscle, fascia and tendon at neck level, initial encounter (principal); O20.0 Threatened abortion; M54.50 Low back pain, unspecified; Z3A.08 8 weeks gestation of pregnancy; V89.2XXA Person injured in unspecified motor-vehicle accident, traffic, initial encounter
CPT/HCPCS: 76801; 76817; 80053; 81015; 84702; 85025; 86850; 86900; 86901; 99283; 99284

== ENCOUNTER → 2024-12-16 16:24 | Outpatient (CLI) | payer OTHER, MEDICAID, SELFPAY ==
[2024-12-16 17:47] LABS: Add Manual Diff / Slide Review NO; Basophils Absolute Auto 100 /uL (0-100); Basophils Percent Auto 0.9 % (0-2); Eosinophils Absolute Auto 500 /uL (0-450); Eosinophils Percent Auto 6.1 % (2-4); Hematocrit 41.4 % (36-46); Lymphocytes Absolute Auto 2600 /uL (1100-4500); Lymphocytes Percent Auto 31.1 % (25-40); Mean Corpuscular HGB Conc 33.9 % (30-36); Mean Corpuscular Hemoglobin 29.3 PG (26-34); Mean Corpuscular Volume 86.6 fL (80-100); Monocytes Absolute Auto 500 /uL (0-900); Monocytes Percent Auto 6.6 % (3-14); Neutrophils Absolute Auto 4600 /uL (1500-7000); Neutrophils Percent Auto 55.3 % (50-75); Platelet Count 323 X10^3/uL (150-400); Red Blood Cell Count 4.78 X10^6/uL (4.0-5.2); Red Cell Distribution Width 13.1 % (11.6-14.8); White Blood Cell Count 8.3 X10^3/uL (4.5-11.0)
[2024-12-16 17:50] LABS: Hemoglobin A1C% w Est Avg Glu 4.6 % (4.0-6.0)
[2024-12-16 17:57] LABS: Appearance Urine UA CLEAR; Bilirubin Urine UA NEGATIVE (NEGATIVE); Color Urine UA YELLOW; Glucose Urine UA NEGATIVE (Negative); Ketones Urine UA NEGATIVE (NEGATIVE); Leukocyte Esterase Urine UA 1+ (NEGATIVE); Nitrite Urine UA NEGATIVE (Negative); Occult Blood Urine UA NEGATIVE (Negative); Protein Urine UA NEGATIVE (Negative); Specific Gravity Urine UA >=1.030 (1.000-1.035); Urobilinogen Urine UA 0.2 E.U./dL (0.2)
[2024-12-16 18:18] LABS: Bacteria Urine Few (2-10); RBC Urine None Seen (0-5/HPF); Squamous Epithelial Cell Urine 5-10 /HPF (0-5/HPF); Urine Volume 10mL (spun); WBC Urine 5-10/HPF (0-5/HPF)
[2024-12-16 18:51] LABS: HCG Quantitative /Beta subunit 21292 mIU/mL
[2024-12-16 18:55] LABS: Hepatitis B Surface Antigen NEGATIVE s/c (NEGATIVE); Rubella Antibody IgG 8.4 IU/mL (>15)
[2024-12-16 19:06] LABS: HIV 1 & 2 Ab/Ag 4th Gen Combo NEGATIVE (NEGATIVE); Hep C Virus Ab w/Reflex Quant NEGATIVE s/c (NEGATIVE)
== END ==
LOC: LAB 16:24
PROVIDERS: PCP Family Medicine; Referring Provider Family Medicine; Visit Provider Family Medicine
DX: O99.210 Obesity complicating pregnancy, unspecified trimester (principal); O20.0 Threatened abortion
CPT/HCPCS: 36415; 80055; 81003; 81015; 83036; 84702; 86787; 86803; 86850; 86900; 86901; 87086; 87389

== ENCOUNTER → 2024-12-19 12:23 | Outpatient (CLI) | payer MEDICAID, SELFPAY ==
[2024-12-19 14:17] LABS: HCG Quantitative /Beta subunit 24613 mIU/mL
== END ==
PROVIDERS: PCP Family Medicine; Referring Provider Family Medicine; Visit Provider Family Medicine
DX: O03.9 Complete or unspecified spontaneous abortion without complication (principal)
CPT/HCPCS: 36415; 84702

== ENCOUNTER → 2025-04-09 11:41 | Outpatient (CLI) | payer OTHER, MEDICAID, SELFPAY ==
[2025-04-09 12:30] LABS: Add Manual Diff / Slide Review NO; Hematocrit 42.9 % (36-46); Hemoglobin 14.4 g/dL (12.0-16.0); Lymphocytes Absolute Auto 2300 /uL (1100-4500); Mean Corpuscular HGB Conc 33.6 % (30-36); Mean Corpuscular Hemoglobin 28.6 PG (26-34); Mean Corpuscular Volume 85.2 fL (80-100); Platelet Count 349 X10^3/uL (150-400)
[2025-04-09 12:59] LABS: Appearance Urine UA CLEAR; Bilirubin Urine UA NEGATIVE (NEGATIVE); Color Urine UA YELLOW; Glucose Urine UA NEGATIVE (Negative); Ketones Urine UA NEGATIVE (NEGATIVE); Leukocyte Esterase Urine UA NEGATIVE (NEGATIVE); Nitrite Urine UA NEGATIVE (Negative); Occult Blood Urine UA NEGATIVE (Negative); Protein Urine UA NEGATIVE (Negative); Specific Gravity Urine UA 1.025 (1.000-1.035); Urobilinogen Urine UA 1.0 E.U./dL (0.2)
[2025-04-09 13:02] LABS: pH Urine UA 6.5 (4.5-8.0)
[2025-04-09 13:24] LABS: HCG Quantitative /Beta subunit 12877 mIU/mL
[2025-04-09 16:15] LABS: Hepatitis B Surface Antigen NEGATIVE s/c (NEGATIVE)
[2025-04-09 16:31] LABS: HIV 1 & 2 Ab/Ag 4th Gen Combo NEGATIVE (NEGATIVE); Hep C Virus Ab w/Reflex Quant NEGATIVE s/c (NEGATIVE)
== END ==
PROVIDERS: PCP Family Medicine; Referring Provider Family Medicine; Visit Provider Family Medicine
DX: Z34.80 Encounter for supervision of other normal pregnancy, unspecified trimester (principal)
CPT/HCPCS: 36415; 80055; 81003; 84702; 86787; 86803; 86850; 86900; 86901; 87086; 87389

== ENCOUNTER → 2025-04-30 12:32 | Outpatient (CLI) | payer MEDICAID, OTHER, SELFPAY ==
[2025-04-30 14:30] LABS: HCG Quantitative /Beta subunit 59588 mIU/mL
== END ==
PROVIDERS: PCP Family Medicine; Referring Provider Family Medicine; Visit Provider Family Medicine
DX: Z34.80 Encounter for supervision of other normal pregnancy, unspecified trimester (principal)
CPT/HCPCS: 36415; 84702

== ENCOUNTER 2025-05-20 18:48 | Emergency (ER) | payer MEDICAID, OTHER, SELFPAY ==
[2025-05-20 19:15] VITALS: BP 121/68; PULSE 64; RESP 16; TEMP 37; O2SAT 99; BMI 31.3
== END 2025-05-20 20:56 | disposition left against medical advice (07) ==
PROVIDERS: Emergency Provider Emergency Medicine; PCP Family Medicine
DX: Z53.21 Procedure and treatment not carried out due to patient leaving prior to being seen by health care provider (principal)
CPT/HCPCS: 99281

== ENCOUNTER → 2025-07-10 10:50 | Outpatient (CLI) | payer OTHER, SELFPAY ==
[2025-07-13 13:12] LABS: AFP, Serum 34.9 ng/mL (.); Calc Gestational Age Ultrasound (.); Estriol, Free 2.08 ng/mL (.); Inhibin A, Dimeric 170.72 pg/mL (.); Inhibin A, MoM 1.25 (.); Maternal Ethnicity Other (.); T18 Risk by Age 1:2287 (.); hCG, MoM 1.73 (.); hCG, Serum 35846 mIU/mL (.)
== END ==
PROVIDERS: PCP Family Medicine; Referring Provider Family Medicine; Visit Provider Family Medicine
DX: Z34.80 Encounter for supervision of other normal pregnancy, unspecified trimester (principal)
CPT/HCPCS: 36415; 82105; 82677; 84702; 86336

== ENCOUNTER → 2025-07-23 13:48 | Outpatient (CLI) | payer OTHER, SELFPAY ==
--- NOTE | 2025-07-23 13:49 | DI.US.S_ITS ---
PROCEDURE: US OB >= 14 WEEKS FETUS INDICATIONS: anatomy OUTSIDE/PRIOR DATING DATA: Last menstrual period (LMP): 225. LMP-based estimated date of delivery (AROLDO): 12/03/2025. First dating scan (date and location): 04/15/2025. Estimated date of delivery (AROLDO) from first dating scan: 12/04/2025. The calculations are made using the menstrual AROLDO of 12/03/2025. TECHNIQUE: Real-time scanning was performed of the fetus, with image documentation and biometric measurements. Endovaginal scanning: Not done COMPARISON: [facility], OB <= 14 WEEKS FETUS, 12/14/2024, 14:48. FINDINGS: General: A single live intrauterine gestation is present. Presentation: Transverse. Placenta: Placental position is anterior , without previa. Amniotic fluid index: 12.9 cm, normal range is 5-24 cm. Single deepest vertical pocket is 4 cm. heart rate: 139-208 beats per minute. Maternal cervical canal: 3.7 cm long. Normal lower limit is 2.5 cm. biometrics: Biparietal diameter: 5 cm equals 21 weeks 1 day Head circumference: 19.1 cm equals 21 weeks 2 days Abdominal circumference: 18.2 cm equals 23 weeks 1 day Femur length: 3.7 cm equals 21 weeks 4 days Clinically estimated gestational age: 21 weeks 0 days Composite gestational age from present scan: 21 weeks 6 days Estimated weight and percentile: 488 g, 96 percentile Anatomic survey: Neuro: Ventricles are non-dilated at less than 10 mm. Cisterna magna is normal at 3-11 mm. Cerebellum is normal in size and morphology. Nuchal skin fold: Normal at less than 6 mm between 14-21 weeks gestational age. Face: Not well seen. No abnormality is seen. Spine: Not well seen, particularly within the lumbar spine. Heart: A 4 chambered heart is not demonstrated. The cardiac outflow tracts are not well seen. There is a potential small pericardial effusion Diaphragm: Diaphragm is intact. Stomach: Left-sided stomach is present. Kidneys: No hydronephrosis. Normal is less than 5 mm in 2nd trimester, less than 7 mm in 3rd trimester. Cord: 3-vessel cord has orthotopic insertion. The placental cord insertion is not well seen. Bladder: Normal in size. Extremities: All 4 extremities identified. IMPRESSION: Large fetus, with estimated weight at the 96th percentile. The abdominal circumference is at the 94th percentile. Potential trace pericardial effusion. Several structures are not well seen, including the heart. - A follow-up examination in 2 weeks is recommended. We strive to produce accurate, complete, and clear reports of imaging services. To assist us in improving patient care, this report was composed using standard report templates and voice recognition software. Therefore, it may contain abnormal punctuation, insertions and/or omissions. Occasional wrong-word or sound-alike substitutions may occur. Though we review the report and make efforts to correct it, we do recommend that the report be read carefully in proper context to recognize any text inaccuracies. Dictated by: Tien Chandra M.D. on 07/23/2025 at 15:20 Approved by: Tien Chandra M.D. on 07/23/2025 at 15:23
== END ==
LOC: US 13:48
PROVIDERS: PCP Family Medicine; Referring Provider Family Medicine; Visit Provider Family Medicine
DX: Z34.80 Encounter for supervision of other normal pregnancy, unspecified trimester (principal); Z3A.21 21 weeks gestation of pregnancy
CPT/HCPCS: 76811

== ENCOUNTER → 2025-08-05 16:00 | Outpatient (CLI) | payer MEDICAID, SELFPAY ==
--- NOTE | 2025-08-05 16:01 | DI.US.S_ITS ---
PROCEDURE: US OB FOLLOW UP INDICATIONS: FOLLOW UP ANATOMY OUTSIDE/PRIOR DATING DATA: Working AROLDO 12/03/2025 TECHNIQUE: Real-time scanning was performed of the fetus, with image documentation. COMPARISON: [facility], OB FOLLOW UP, 07/22/2018, 14:04. FINDINGS: A single living intrauterine gestation is present. Presentation: Transverse. Placenta: Placental position is anterior, without previa. Amniotic fluid index: 14.6 cm, normal range is 5-24 cm. Single deepest vertical pocket is 5 cm. heart rate: 157 beats per minute. Maternal cervical canal: 3.3 cm long. Normal lower limit is 2.5 cm. Clinically estimated gestational age: 22 weeks and 6 days Profile remains not well seen. Nose lips within normal limits C-spine unremarkable Rest of the spine not well seen Placental cord origin remains not well seen. Mild pericardial effusion persists. Four-chamber view of the heart not well seen. No gross abnormality of the outflow tracts although they were not fully visualized. Echogenic focus seen within the left ventricle. IMPRESSION: Intrauterine gestation seen with cardiac motion in transverse presentation. Normal ROGELIO. Persistent trace pericardial effusion. Four-chamber view remains not well seen. No gross abnormality of the cardiac outflow tracts, although they were also not well seen. Multiple echogenic foci seen in the left ventricle, nonspecific. Correlate with potential genetic testing and MFM consultation, if clinically indicated Profile, mid and lower spine, and placental cord origin remain not well seen. Dictated by: Omero Mejía M.D. on 08/06/2025 at 10:27 Approved by: Omero Mejía M.D. on 08/06/2025 at 10:33
== END ==
PROVIDERS: PCP Family Medicine; Referring Provider Family Medicine; Visit Provider Family Medicine
DX: Z34.82 Encounter for supervision of other normal pregnancy, second trimester (principal); Z3A.22 22 weeks gestation of pregnancy
CPT/HCPCS: 76816

== ENCOUNTER → 2025-09-25 11:02 | Outpatient (CLI) | payer OTHER, MEDICAID, SELFPAY ==
[2025-09-25 12:36] LABS: Add Manual Diff / Slide Review NO; Hematocrit 34.3 % (36-46); Hemoglobin 11.6 g/dL (12.0-16.0); Lymphocytes Absolute Auto 2100 /uL (1100-4500); Mean Corpuscular HGB Conc 33.9 % (30-36); Mean Corpuscular Hemoglobin 27.1 PG (26-34); Mean Corpuscular Volume 79.9 fL (80-100); Platelet Count 276 X10^3/uL (150-400)
[2025-09-25 12:59] LABS: GTT (PREG) 1 Hour PP 50gm Dose 88 mg/dL (76-139)
== END ==
PROVIDERS: PCP Family Medicine; Referring Provider Family Medicine; Visit Provider Family Medicine
DX: Z34.80 Encounter for supervision of other normal pregnancy, unspecified trimester (principal)
CPT/HCPCS: 36415; 82950; 85025; 86850